=== PATIENT | male | born 1950 | race Caucasian/White ===

== ENCOUNTER 2020-05-27 21:31 | Inpatient (IN) | payer MEDICARE, BC ==
--- NOTE | 2020-05-27 22:18 | RAD ---
PORTABLE CHEST: Date: 05/27/2020 PROVIDED CLINICAL HISTORY: Dyspnea. FINDINGS: Comparison with 04/03/2020. The cardiac silhouette remains enlarged. Median sternotomy changes and left subclavian cardiac pacing device are redemonstrated. No focal consolidation, pleural fluid, or pneumothorax apparent. IMPRESSION: No evidence for an acute cardiopulmonary process. POS: AUDI
[2020-05-27 22:34] LABS: #Eosinphils 0.1 thou/uL (0.0-0.7); #Lymphocytes 1.5 thou/uL (1.20-3.40); #Monocytes 0.6 thou/uL (0.11-0.59); #Neutrophils 5.2 thou/uL (1.40-6.50); %Basophils 0.6 % (0.0-1.0); %Eosinophils 0.8 % (0.0-10.0); %Lymphocytes 20.5 % (21.0-51.0); %Monocytes 7.7 % (0.0-10.0); %Neutrophils 70.5 % (42.0-75.0); Hemoglobin 14.5 g/dL (14.0-18.0); Mean Corpuscular HGB CONC 32.9 g/dL (32.0-36.0); Mean Corpuscular Hemoglobin 32.4 pg (27.0-31.0); Mean Corpuscular Volume 98.4 fL (78.0-98.0); Mean Platelet Volume 9.1 fL (7.4-10.4); Platelet Count 170 thou/uL (130-400); RBC Distribution Width 13.4 % (11.5-14.5); Red Blood Cell (RBC) Count 4.47 mill/uL (4.70-6.10); White Blood Cell (WBC) Count 7.4 thou/uL (4.8-10.8)
[2020-05-27 22:54] LABS: ALT (SGPT) 53 U/L (8-55); AST (SGOT) 31 U/L (5-34); Albumin 3.8 g/dL (3.4-4.8); Alkaline Phosphatase 69 U/L (40-110); Anion Gap 15 mmol/L (10-20); BUN (Urea Nitrogen) 27 mg/dL (8.4-25.7); Bilirubin, Total 0.6 mg/dL (0.2-1.2); Calc. Creatinine Clearance 0 mL/min (70-130); Calcium 9.8 mg/dL (7.8-10.44); Carbon Dioxide 24 mmol/L (23-31); Chloride 105 mmol/L (98-107); Estimated GFR-MDRD 56; Globulin 2.2 g/dL (2.4-3.5); Glucose 128 mg/dL (83-110); Potassium 4.5 mmol/L (3.5-5.1); Sodium 139 mmol/L (136-145)
[2020-05-28] MEDS ORDERED: HYDROcodone/Acetaminophen 5/325 mg Tablet PO PRN (01:05)
[2020-05-28] MEDS ORDERED: Ondansetron PF 4 MG/2 ML Vial IVP PRN (01:05)
[2020-05-28] MEDS ORDERED: diphenhydrAMINE 50 MG/ML VIAL IVP PRN (01:05)
[2020-05-28] MEDS ORDERED: Acetaminophen 650 MG Suppository PR PRN (01:05)
[2020-05-28] MEDS ORDERED: Acetaminophen 325 MG TAB PO PRN (01:05)
--- NOTE | 2020-05-28 01:21 | PDOC.HHP ---
Hospitalist HPI - History of Present Illness dyspnea abdominal pain History of Present Illness: Case of an 70y/o male with a pmhx of cad, chf with an ef of around 20-25% with def hld and htn who comes to hospital due to dyspnea, abdominal pain nausea and vomiting. patient refers he was on his usual states until a few weeks ago when they started him on entresto holding his spiranolactone and a change on his lipid/cholesterol medication. patient states his spiranolactone was stopped due to concerns of hyperkalemia due to starting entresto. patient states that for the last couples of weeks he was been experimenting bloating and abdominal discomfort and that for the last 2-3 days he began with some intractable nausea vomiting and dyspnea. patient deneis any chest pain palpitation or diaphoresis. he states he has no noted any significant change in weight, does refers he is passing a lot of stool recently but that is of normal consistency. denies fever chills cough dysuria. initially abdominal pain was diffused but is now concentrated on LLQ 4/10 of intensity. states last colonoscopy was approximately 5 years ago and was normal Hospitalist ROS - Review of Systems All other systems reviewed; all pertinent +/- noted in HPI/Subj Hospitalist History - Past Surgical History Past Surgical History: reports: CABG Other Surgical History: stent - Family History Family History: reports: cardiac disorder, hypertension - Social History Smoking Status: Never smoker Alcohol: reports: None Drugs: reports: none Living Situation: With Family - Exam General Appearance: NAD, awake alert Eye: PERRL, anicteric sclera ENT: normocephalic atraumatic, no oropharyngeal lesions Neck: supple, symmetric, no JVD Heart: RRR, no murmur, no gallops Respiratory: CTAB, no wheezes, no rales, no ronchi Gastrointestinal: soft, non-distended, normal bowel sounds, tender to palpation Gastrointestinal - other findings: mild tenders llq Extremities: no cyanosis, no clubbing, no edema Skin: normal turgor, no lesions Neurological: cranial nerve grossly intact, normal sensation to touch, no weakness Musculoskeletal: normal tone, normal strength, no muscle wasting Psychiatric: normal affect, normal behavior, A&O x 3 Hospitalist Results - Labs Result Diagrams: 05/27/20 22:23 05/27/20 22:23 Lab results: WBC 7.4 thou/uL (4.8-10.8) 05/27/20 22:23 Hgb 14.5 g/dL (14.0-18.0) 05/27/20 22:23 Hct 44.0 % (42.0-52.0) 05/27/20 22:23 MCV 98.4 fL (78.0-98.0) H 05/27/20 22:23 Plt Count 170 thou/uL (130-400) 05/27/20 22:23 Neutrophils % 70.5 % (42.0-75.0) 05/27/20 22:23 Sodium 139 mmol/L (136-145) 05/27/20 22:23 Potassium 4.5 mmol/L (3.5-5.1) 05/27/20 22:23 Chloride 105 mmol/L (98-107) 05/27/20 22:23 Carbon Dioxide 24 mmol/L (23-31) 05/27/20 22:23 BUN 27 mg/dL (8.4-25.7) H 05/27/20 22:23 Creatinine 1.26 mg/dL (0.7-1.3) 05/27/20 22:23 Glucose 128 mg/dL (83-110) H 05/27/20 22:23 Calcium 9.8 mg/dL (7.8-10.44) 05/27/20 22:23 Total Bilirubin 0.6 mg/dL (0.2-1.2) 05/27/20 22:23 AST 31 U/L (5-34) 05/27/20 22:23 ALT 53 U/L (8-55) 05/27/20 22:23 Alkaline Phosphatase 69 U/L (40-110) 05/27/20 22:23 Troponin I 0.026 ng/mL (< 0.028) 05/27/20 22:23 B-Natriuretic Peptide 3069.0 pg/mL (0-100) H 05/27/20 22:23 Serum Total Protein 6.0 g/dL (5.8-8.1) 05/27/20 22:23 Albumin 3.8 g/dL (3.4-4.8) 05/27/20 22:23 Hospitalist H&P A/P - Problem (1) Acute decompensated heart failure Code(s): I50.9 - HEART FAILURE, UNSPECIFIED Status: Acute (2) CAD (coronary artery disease) Code(s): I25.10 - ATHSCL HEART DISEASE OF [place] CORONARY ARTERY W/O ANG PCTRS Status: Acute (3) Abdominal pain Code(s): R10.9 - UNSPECIFIED ABDOMINAL PAIN Status: Acute (4) Nausea & vomiting Code(s): R11.2 - NAUSEA WITH VOMITING, UNSPECIFIED Status: Acute (5) HTN (hypertension) Code(s): I10 - ESSENTIAL (PRIMARY) HYPERTENSION Status: Acute (6) HLD (hyperlipidemia) Code(s): E78.5 - HYPERLIPIDEMIA, UNSPECIFIED Status: Acute - Plan Plan: 70y/o male with the stated pmhx who presents with abd pain with associated n/v and dyspnea decompensated heart failure - cxr with cardiomegaly - bnp in the 3k - cardiology consulted - troponin negative will trend -02 supplementation - allergic to lasix will try bumex - 2d echo - continue with betablocker and entresto - will restart spiranolactone, monitor K levels -telemetry monitoring nausea and vomiting - prn symptomatic tx abdominal pain - concentrated on LLQ now - will get abd ct - symptoms started wth bloating increased stooling. patient was recently started on livalo and vascepa which both have listed side effects abd discomfort diarrhea and nausea. will hold for now. hld - statin stopped due to muscle aches. recently started on livalo and vascepa. w ill hold due to possible side effects affecting patient
[2020-05-28 02:06] LABS: Troponin I 0.015 ng/mL (< 0.028)
[2020-05-28 02:40] VITALS: BMI 25.7
[2020-05-28 04:28] LABS: SARS-CoV-2 MS2 Positive; SARS-CoV-2 N Gene Negative; SARS-CoV-2 S Gene Negative; SARS-CoV-2 by NAA Not Detected (NotDetected); SARS-CoV-2 orf1ab Negative
[2020-05-28 04:38] LABS: #Basophils 0.1 thou/uL (0.0-0.2); #Lymphocytes 1.7 thou/uL (1.20-3.40); #Monocytes 0.6 thou/uL (0.11-0.59); #Neutrophils 5.5 thou/uL (1.40-6.50); %Basophils 0.7 % (0.0-1.0); %Eosinophils 0.5 % (0.0-10.0); %Lymphocytes 21.3 % (21.0-51.0); %Monocytes 8.1 % (0.0-10.0); %Neutrophils 69.4 % (42.0-75.0); Hemoglobin 14.9 g/dL (14.0-18.0); Mean Corpuscular HGB CONC 33.3 g/dL (32.0-36.0); Mean Corpuscular Hemoglobin 32.8 pg (27.0-31.0); Mean Corpuscular Volume 98.6 fL (78.0-98.0); Mean Platelet Volume 9.6 fL (7.4-10.4); Platelet Count 154 thou/uL (130-400); RBC Distribution Width 13.4 % (11.5-14.5); Red Blood Cell (RBC) Count 4.53 mill/uL (4.70-6.10); White Blood Cell (WBC) Count 7.9 thou/uL (4.8-10.8)
[2020-05-28 04:58] LABS: ALT (SGPT) 51 U/L (8-55); AST (SGOT) 31 U/L (5-34); Albumin 3.7 g/dL (3.4-4.8); Alkaline Phosphatase 68 U/L (40-110); Anion Gap 14 mmol/L (10-20); BUN (Urea Nitrogen) 26 mg/dL (8.4-25.7); Bilirubin, Total 0.8 mg/dL (0.2-1.2); Calc. Creatinine Clearance 65 mL/min (70-130); Calcium 9.8 mg/dL (7.8-10.44); Carbon Dioxide 25 mmol/L (23-31); Chloride 105 mmol/L (98-107); Estimated GFR-MDRD 61; Globulin 2.4 g/dL (2.4-3.5); Glucose 119 mg/dL (83-110); Magnesium 1.9 mg/dL (1.6-2.6); Potassium 4.3 mmol/L (3.5-5.1); Protein, Total 6.1 g/dL (5.8-8.1); Sodium 140 mmol/L (136-145)
[2020-05-28 05:02] LABS: Troponin I 0.018 ng/mL (< 0.028)
[2020-05-28] MEDS: Bumetanide 1 MG/4 ML VIAL IVP SCH ×2 (06:43→14:13)
[2020-05-28] MEDS: Carvedilol 6.25 MG TAB PO SCH ×2 (08:20→20:59)
[2020-05-28] MEDS: Aspirin Chewable 81 MG TAB PO SCH (08:20)
[2020-05-28] MEDS: Clopidogrel Bisulfate 75 MG TAB PO SCH (08:21)
[2020-05-28] MEDS: Spironolactone 25 MG TAB PO SCH (08:21)
[2020-05-28] MEDS: Enoxaparin Sodium 40 MG/0.4 ML SYRINGE SC SCH (08:21)
[2020-05-28] MEDS: Sacubitril 49 MG/Valsartan 51 MG TABLET PO SCH ×2 (08:22→21:00)
--- NOTE | 2020-05-28 09:51 | CT ---
CT ABDOMEN AND PELVIS WITH ORAL AND IV CONTRAST: HISTORY: Nausea, vomiting, and lower left quadrant abdominal pain. COMPARISON: None. FINDINGS: A small right pleural effusion is present. A small focal patchy consolidation is seen in the left leah ng base. No calcified gallstones are seen. There is a tiny amount of fluid adjacent to the liver. The liver, spleen, pancreas, adrenal glands, and kidneys appear normal. No intraperitoneal free air or lymphadenopathy is seen in the abdomen or pelvis. A small amount of free fluid is also noted in t he pelvis. The small bowel loops are not abnormally dilated. There is a small fat-containing left inguinal jorge ia. There are vascular calcifications without evidence of aneurysmal dilatation of the abdominal aorta. A small hiatal hernia is present. There are degenerative changes in the spine. There is mild compre ssion on the superior end plate of L3 vertebral body. A small amount of free air in the subcutaneous fat of the right anterior abdominal wall is likely due to recent injection. IMPRESSION: 1. Small right pleural effusion and small patchy area of consolidation in the left lung base. 2. Small hiatal hernia. 3. A small amount of free fluid in the abdomen and pelvis. 4. No evidence of high-grade bowel obstruction. POS: MZA
[2020-05-28] MEDS ORDERED: Iopamidol-370 76% 500 ML 1 ML ONE (11:38)
[2020-05-28] MEDS: Ondansetron ODT 4 MG TAB PO PRN ×2 (13:14→21:00)
[2020-05-28] MEDS ORDERED: lamoTRIgine 100 MG TAB PO SCH (18:30)
--- NOTE | 2020-05-28 18:46 | CON ---
DATE OF CONSULTATION: HISTORY: Km Gonzales is a 70-year-old white male, with history of ischemic cardiomyopathy. He recently moved to the area and first saw Dr. Ayala in April 2020. He underwent CABG in 2005. In 2016, he had occlusion of his DSOUZA and he underwent stent placement in the left main. He was supported with Impella. His ejection fraction has been 20% to 25% and he has a single-chamber Biotronik defibrillator. He did develop rash with Lasix and was then tried on spironolactone. Also, Dr. Ayala placed him on Entresto, which he seems to have tolerated fairly well. He now is admitted with increased dyspnea, abdominal pain, nausea, and vomiting. He denies any peripheral edema. He also denies any chest pain. He has been treated with intravenous Bumex, which he apparently has been tolerating fairly well. PAST MEDICAL HISTORY: Ischemic cardiomyopathy, coronary artery disease, hyperlipidemia, depression, asthma, and history of ventricular fibrillation. OPERATIONS: CABG, stent placement presumably in the left main and single-chamber ICD placement. MEDICATIONS: 1. Aspirin 81 daily. 2. Wellbutrin 300 mg q.a.m. 3. Carvedilol 12.5 mg b.i.d. 4. Plavix 75 at bedtime. 5. Vascepa two capsules b.i.d. 6. Lamotrigine 100 mg daily. 7. Livalo 2 mg daily. 8. Entresto 49/51 b.i.d. 9. Spironolactone 25 daily. 10. CoQ10 is 100 daily. ALLERGIES: RASH WITH FUROSEMIDE. WITH ZACHARIAH INHIBITORS, HE DEVELOPED ANGIOEDEMA. WITH MORPHINE, HE DEVELOPS MENTAL CONFUSION AND MENTAL STATUS CHANGES. SOCIAL HISTORY: He does not smoke and never has. He does not drink. FAMILY HISTORY: Mother and multiple siblings have had coronary artery disease. REVIEW OF SYSTEMS: A 12-point review of systems unremarkable. PHYSICAL EXAMINATION: VITAL SIGNS: 123/72, pulse of 70. HEENT: PERRL. NECK: Supple. CHEST: Clear. CARDIAC: S1 and S2 normal, without any S3 or S4. There is a 2/6 holosystolic murmur along the left sternal border and at the apex. ABDOMEN: Normal bowel sounds without tenderness or organomegaly. EXTREMITIES: Revealed no clubbing, cyanosis, or edema. NEUROLOGIC: Grossly intact. SKIN: Warm and dry. LABORATORY DATA: EKG reveals normal sinus rhythm with left axis deviation, nonspecific intraventricular conduction delay, probable anterior infarction. His QRS is 132 milliseconds. He has not had any significant arrhythmias since admission. Sodium 140, potassium 4.3, chloride 105, carbon dioxide 25, BUN 26, and creatinine 1.17. BNP 3069.0. Troponin I is normal. TSH is normal. Hemoglobin 14.9, hematocrit 44.6, white count 7900, and platelets 154,000. Echocardiogram revealed severe left ventricular enlargement with ejection fraction of 10% to 15%, which is worse than before. Defibrillator wire in the right ventricle, with enlarged right ventricle, mild left atrial enlargement, severe mitral regurgitation, severe tricuspid regurgitation and aortic valvular sclerosis. IMPRESSION: 1. Ischemic cardiomyopathy with ejection fraction falling from 20% to 10% to 15%. at this time. 2. Status post coronary artery bypass graft x3. 3. History of closure of the DSOUZA in 2017 with Impella support. Presumably a stent was placed in the left main. 4. Hyperlipidemia. 5. Asthma. 6. Depression. PLAN: Patient will continue to be diuresed with Bumex which he appears to be tolerating. He will be continued on his carvedilol and Entresto. On his EKG, he does have QRS of 132 milliseconds with nonspecific intraventricular conduction delay. I am not certain if this is a new finding and we will attempt to find an EKG in the office for comparison. If that is the case, he then may benefit from consideration with an upgrade to a biventricular ICD. Job ID: [id number]
[2020-05-29] MEDS: Bumetanide 1 MG/4 ML VIAL IVP SCH ×2 (05:26→14:25)
[2020-05-29] MEDS: lamoTRIgine 100 MG TAB PO SCH (09:55)
[2020-05-29] MEDS: Spironolactone 25 MG TAB PO SCH (09:55)
[2020-05-29] MEDS: Carvedilol 6.25 MG TAB PO SCH ×2 (09:55→20:15)
[2020-05-29] MEDS: Bupropion 150 MG XL TAB PO SCH (09:56)
[2020-05-29] MEDS: Clopidogrel Bisulfate 75 MG TAB PO SCH (09:56)
[2020-05-29] MEDS: Aspirin Chewable 81 MG TAB PO SCH (09:56)
[2020-05-29] MEDS: Sacubitril 49 MG/Valsartan 51 MG TABLET PO SCH ×2 (09:56→20:13)
[2020-05-29] MEDS: Enoxaparin Sodium 40 MG/0.4 ML SYRINGE SC SCH (09:59)
[2020-05-29] MEDS ORDERED: Sodium Chloride 0.9% 10 ML ONE (14:13)
[2020-05-29] MEDS: Ondansetron ODT 4 MG TAB PO PRN (15:36)
--- NOTE | 2020-05-29 16:50 | PDOC.CPN ---
- Subjective Date: 05/29/20 Time: 16:48 Interval history: No over night events, patient doing well, states that he is feeling better and not having any SOB or DEWITT today. States that he walked twice as far today with therapy as he did yesterday with fewer breaks. Still c/o bloating sensation in a bdomen after he eats meals, denies nausea and vomiting today. - Review of Systems General: denies: fever/chills, weight/appetite/sleep changes, night sweats, fa tigue Respiratory: denies: cough, congestion, shortness of breath, exercise intolerance Cardiovascular: denies: chest pain, palpitation, edema, paroxysmal nocturnal dyspnea, orthopnea Gastrointestinal: denies: nausea (c/o abdominal bloating sensation after eating), vomiting, diarrhea, constipation, abd pain, GI bleeding Musculoskeletal: denies: pain, tenderness, stiffness, swelling, arthritis/arth ralgias Neurological: denies: numbness, syncope, seizure, weakness - Objective Allergies/Adverse Reactions: Allergies Allergy/AdvReac Type Severity Reaction Status Date / Time ZACHARIAH Inhibitors Allergy Verified 05/28/20 04:50 furosemide [From Lasix] Allergy Verified 05/28/20 04:50 latex Allergy Verified 05/28/20 04:50 morphine Allergy Verified 05/28/20 04:50 Visit Medications: Current Medications Acetaminophen (Acetaminophen 325 Mg Tab) 650 mg PO Q4H PRN PRN Reason: Headache/Fever/Mild Pain (1-3) Acetaminophen (Acetaminophen 650 Mg Suppository) 650 mg TX Q4H PRN PRN Reason: Headache/Fever/Mild Pain (1-3) Hydrocodone Bitart/Acetaminophen (Hydrocodone/Acetaminophen 5/325 Mg Tablet) 1 tab PO Q4H PRN PRN Reason: Moderate Pain (4-6) Aspirin (Aspirin Chewable 81 Mg Tab) 81 mg PO DAILY [facility] Last Admin: 05/29/20 09:56 Dose: 81 mg Documented by: Bumetanide (Bumetanide 1 Mg/4 Ml Vial) 1 mg IVP 0600,1400 [facility] Last Admin: 05/29/20 14:25 Dose: 1 mg Documented by: Bupropion HCl (Bupropion 150 Mg Xl Tab) 300 mg PO QAM [facility] Last Admin: 05/29/20 09:56 Dose: 300 mg Documented by: Carvedilol (Carvedilol 6.25 Mg Tab) 12.5 mg PO BID [facility] Last Admin: 05/29/20 09:55 Dose: 12.5 mg Documented by: Clopidogrel Bisulfate (Clopidogrel Bisulfate 75 Mg Tab) 75 mg PO DAILY [facility] Last Admin: 05/29/20 09:56 Dose: 75 mg Documented by: Diphenhydramine HCl (Diphenhydramine 50 Mg/Ml Vial) 25 mg IVP [place] PRN PRN Reason: Allergies Enoxaparin Sodium (Enoxaparin Sodium 40 Mg/0.4 Ml Syringe) 40 mg SC 09 [facility] Last Admin: 05/29/20 09:59 Dose: 40 mg Documented by: Lamotrigine (Lamotrigine 100 Mg Tab) 100 mg PO DAILY [facility] Last Admin: 05/29/20 09:55 Dose: 100 mg Documented by: Ondansetron HCl (Ondansetron Odt 4 Mg Tab) 4 mg PO Q6H PRN PRN Reason: Nausea/Vomiting Last Admin: 05/29/20 15:36 Dose: 4 mg Documented by: Ondansetron HCl (Ondansetron Pf 4 Mg/2 Ml Vial) 4 mg IVP Q6H PRN PRN Reason: Nausea/Vomiting Sacubitril/Valsartan (Sacubitril 49 Mg/Valsartan 51 Mg Tablet) 1 tab PO BID [facility] Last Admin: 05/29/20 09:56 Dose: 1 tab Documented by: Spironolactone (Spironolactone 25 Mg Tab) 12.5 mg PO DAILY [facility] Last Admin: 05/29/20 09:55 Dose: 12.5 mg Documented by: Vital Signs & Weight: Vital Signs Temp Pulse Pulse Pulse Resp BP BP 05/29/20 11:39 97.9 F 70 16 05/29/20 10:47 86 77 122/76 05/29/20 09:55 122/74 05/29/20 08:00 97.5 F L 75 16 BP BP Pulse Ox Pulse Ox Pulse Ox 05/29/20 11:39 117/77 97 05/29/20 10:47 117/86 99 98 05/29/20 09:55 05/29/20 08:00 122/74 95 Weight 173 lb 14.4 oz - Quality Measures CV meds: Beta Narendra: Yes, ZACHARIAH/ARB: Yes, Statin: Yes, ASA: Yes, Plavix/Effient/Brilinta: Yes - Physical Exam General: alert & oriented x3, appears well, no apparent distress HEENT: mucus membranes moist Neck: supple neck, no JVD/HJR Cardiac: regular rate and rhythm, systolic murmur (2/6 holosystolic murmur along the left sternal border and at the apex) Lungs: clear to auscultation, normal breath sounds, no wheeze, rales, rhonchi Neuro: grossly intact, motor function intact, sensory function intact Abdomen: unremarkable, active bowel sounds, soft, non-tender, no masses Extremities: no cyanosis, no clubbing, no edema, 2+ Posterior Tibial, 2+ Dorsalis Pedus Skin: clear Musculoskeletal: normal range of motion, no pain - Labs Result Diagrams: 05/28/20 04:05 05/28/20 04:05 Troponin/CKMB Troponin I 0.018 ng/mL (< 0.028) 05/28/20 04:05 - EKG Interpretation EKG Method: Telemetry EKG: sinus rhythm - Assessment/Plan Assessment/Plan: 1. Ischemic cardiomyopathy with EF of 10-15%, continue with current medications at this time, on Carvedilol, Entresto and Spironolactone, EP consult Sunday. 2. S/P CABG x 3 3. Hyperlipidemia: on Vascepa and Livalo, will obtain most recent lipid panel from office records 4. Asthma: well-controlled at this time Pt. seen and eval. by me. I agree with the a/P by the LEAD GENERATION REPRESENTATIVE. EP to see on Sunday to consider upgrade to Bi-V device. The pt. would require increased dose of betablockers in order to allow V-pacing since the HR has been in the 70-90's., he paces raely at this time. abdoul
--- NOTE | 2020-05-29 18:07 | PDOC.HOSPP ---
- Subjective Encounter Date: 05/29/20 Encounter Time: 09:30 Subjective: Patient seen for follow-up regarding congestive heart failure exacerbation. Reports feeling better today. It appears that he has been able to lie flat. He reports less shortness of breath with exertion. - Objective Vital Signs & Weight: Vital Signs (12 hours) Temp Pulse Pulse Pulse Resp BP BP 05/29/20 16:00 98.2 F 73 16 05/29/20 11:39 97.9 F 70 16 05/29/20 10:47 86 77 122/76 05/29/20 09:55 122/74 05/29/20 08:00 97.5 F L 75 16 BP BP Pulse Ox Pulse Ox Pulse Ox 05/29/20 16:00 108/76 05/29/20 11:39 117/77 97 05/29/20 10:47 117/86 99 98 05/29/20 09:55 05/29/20 08:00 122/74 95 Weight Weight 173 lb 14.4 oz I&O: 05/28/20 05/29/20 05/30/20 06:59 06:59 06:59 Intake Total 240 1240 Output Total 50 2120 Balance 190 -880 Result Diagrams: 05/28/20 04:05 05/28/20 04:05 Additional Labs: Labs and MAR reviewed by me EKG Reviewed by me: Yes (Telemetry shows normal sinus rhythm) Hospitalist ROS - Review of Systems Respiratory: reports: SOB with excertion. denies: cough, dry, shortness of breath, hemoptysis, pleuritic pain, sputum, wheezing Cardiovascular: denies: chest pain, palpitations, orthopnea, paroxysmal noc. dyspnea, edema, light headedness Gastrointestinal: denies: nausea, vomiting, abdominal pain, diarrhea, constipation, melena, hematochezia - Medication Medications: Active Medications Generic Name Dose Route Start Last Admin Trade Name Freq PRN Reason Stop Dose Admin Aspirin 81 mg 05/28/20 09:00 05/29/20 09:56 Aspirin Chewable 81 Mg Tab PO 81 mg DAILY EFRAÍN Administration Bumetanide 1 mg 05/28/20 06:00 05/29/20 14:25 Bumetanide 1 Mg/4 Ml Vial IVP 1 mg 0600,1400 EFRAÍN Administration Bupropion HCl 300 mg 05/29/20 09:00 05/29/20 09:56 Bupropion 150 Mg Xl Tab PO 300 mg QAM EFRAÍN Administration Carvedilol 12.5 mg 05/28/20 09:00 05/29/20 09:55 Carvedilol 6.25 Mg Tab PO 12.5 mg BID EFRAÍN Administration Clopidogrel Bisulfate 75 mg 05/28/20 09:00 05/29/20 09:56 Clopidogrel Bisulfate 75 Mg Tab PO 75 mg DAILY EFRAÍN Administration Enoxaparin Sodium 40 mg 05/28/20 09:00 05/29/20 09:59 Enoxaparin Sodium 40 Mg/0.4 Ml Syringe SC 40 mg 09 EFRAÍN Administration Lamotrigine 100 mg 05/29/20 09:00 05/29/20 09:55 Lamotrigine 100 Mg Tab PO 100 mg DAILY EFRAÍN Administration Ondansetron HCl 4 mg 05/28/20 01:05 05/29/20 15:36 Ondansetron Odt 4 Mg Tab PO 4 mg Q6H PRN Administration Nausea/Vomiting Sacubitril/Valsartan 1 tab 05/28/20 09:00 05/29/20 09:56 Sacubitril 49 Mg/Valsartan 51 Mg Tablet PO 1 tab BID [facility] Administration Spironolactone 12.5 mg 05/28/20 09:00 05/29/20 09:55 Spironolactone 25 Mg Tab PO 12.5 mg DAILY EFRAÍN Administration - Exam General Appearance: awake alert Eye: anicteric sclera ENT: moist mucosa Neck: supple Heart: RRR Respiratory: CTAB Gastrointestinal: soft, non-tender Skin: no rashes Psychiatric: normal affect, normal behavior Hosp A/P - Plan -Assessment (1) Acute decompensated heart failure Code(s): I50.9 - HEART FAILURE, UNSPECIFIED Status: Acute (2) CAD (coronary artery disease) Code(s): I25.10 - ATHSCL HEART DISEASE OF [place] CORONARY ARTERY W/O ANG PCTRS Status: Chronic (3) HTN (hypertension) Code(s): I10 - ESSENTIAL (PRIMARY) HYPERTENSION Status: Chronic (4) HLD (hyperlipidemia) Code(s): E78.5 - HYPERLIPIDEMIA, UNSPECIFIED Status: Chronic (5) Abdominal pain Code(s): R10.9 - UNSPECIFIED ABDOMINAL PAIN Status: Resolved (6) Nausea & vomiting Code(s): R11.2 - NAUSEA WITH VOMITING, UNSPECIFIED Status: Resolved - Plan Plan: 70y/o male with the stated pmhx who presents with abd pain with associated n/v and dyspnea Continue IV bumetanide. Patient is clinically improving. Continue to ambulate patient. Appreciate cardiology service input. Continue Entresto. Continue Wellbutrin. Await EP service input. CAD stable. Continue Livalo and Vascepa. Hypertension is controlled and stable.
--- NOTE | 2020-05-29 20:03 | PDOC.EVN ---
Event Note - Event Note Event Note: Nursing called, patient has slightly pruritic rash s/p bumex, hx allergy to lasix. VSS, no resp distress. Will give antihistamines. D/C bumex.
[2020-05-29] MEDS ORDERED: Famotidine 20 MG TAB PO SCH (20:15)
[2020-05-29] MEDS ORDERED: diphenhydrAMINE 25 MG CAP PO SCH (20:15)
[2020-05-29] MEDS: Atorvastatin Calcium 10 MG TAB PO SCH (20:15)
[2020-05-30] MEDS ORDERED: diphenhydrAMINE 50 MG/ML VIAL IVP SCH ×2 (01:45→08:45)
[2020-05-30 05:00] LABS: #Eosinphils 0.4 thou/uL (0.0-0.7); #Lymphocytes 1.6 thou/uL (1.20-3.40); #Monocytes 0.6 thou/uL (0.11-0.59); #Neutrophils 4.4 thou/uL (1.40-6.50); %Basophils 0.7 % (0.0-1.0); %Eosinophils 5.1 % (0.0-10.0); %Lymphocytes 22.9 % (21.0-51.0); %Monocytes 8.9 % (0.0-10.0); %Neutrophils 62.4 % (42.0-75.0); Hemoglobin 15.6 g/dL (14.0-18.0); Mean Corpuscular HGB CONC 32.4 g/dL (32.0-36.0); Mean Corpuscular Hemoglobin 32.1 pg (27.0-31.0); Mean Corpuscular Volume 99.1 fL (78.0-98.0); Mean Platelet Volume 9.8 fL (7.4-10.4); Platelet Count 163 thou/uL (130-400); RBC Distribution Width 13.9 % (11.5-14.5); Red Blood Cell (RBC) Count 4.85 mill/uL (4.70-6.10); White Blood Cell (WBC) Count 7.1 thou/uL (4.8-10.8)
[2020-05-30 05:22] LABS: Anion Gap 15 mmol/L (10-20); BUN (Urea Nitrogen) 30 mg/dL (8.4-25.7); Calc. Creatinine Clearance 55 mL/min (70-130); Calcium 9.3 mg/dL (7.8-10.44); Carbon Dioxide 28 mmol/L (23-31); Chloride 97 mmol/L (98-107); Estimated GFR-MDRD 52; Glucose 112 mg/dL (83-110); Potassium 3.9 mmol/L (3.5-5.1); Sodium 136 mmol/L (136-145)
[2020-05-30] MEDS: Clopidogrel Bisulfate 75 MG TAB PO SCH (08:28)
[2020-05-30] MEDS: Bupropion 150 MG XL TAB PO SCH (08:28)
[2020-05-30] MEDS: Sacubitril 49 MG/Valsartan 51 MG TABLET PO SCH ×2 (08:28→20:55)
[2020-05-30] MEDS: Ubidecarenone 50 MG CAP PO SCH (08:28)
[2020-05-30] MEDS: Aspirin Chewable 81 MG TAB PO SCH (08:29)
[2020-05-30] MEDS: Cholecalciferol 1,000 UNITS (25 MCG) TAB PO SCH (08:29)
[2020-05-30] MEDS: Carvedilol 6.25 MG TAB PO SCH ×2 (08:29→20:55)
[2020-05-30] MEDS: lamoTRIgine 100 MG TAB PO SCH (08:30)
[2020-05-30] MEDS: Spironolactone 25 MG TAB PO SCH (08:30)
[2020-05-30] MEDS: Enoxaparin Sodium 40 MG/0.4 ML SYRINGE SC SCH (08:32)
[2020-05-30] MEDS ORDERED: Non-Formulary Item 1 EACH (Pitavastatin Calcium 2 MG Tab) PO SCH (09:00)
[2020-05-30] MEDS: Icosapent Ethyl 1 GM CAPSULE PO SCH ×2 (09:09→16:31)
--- NOTE | 2020-05-30 14:23 | PDOC.CPN ---
- Subjective Date: 05/30/20 Time: 13:40 Interval history: Patient doing well today. He did have 5 beats of NSVT early this AM. Patient asymptomatic. patient had development of rash last night, possibly from IV Bumex r/t Furosemide allergy, patient had received 4 doses of IV Bumex before developm ent of rash, Bumex has been dc'd. Rash still present, patient c/o itching to rash, has received Benadryl for this which has been helpful. Denies any chest pain of shortness of breath, states he nausea and stomach upset are getting better, but still c/o abdominal bloating today, he is sitting up in his chair. - Review of Systems General: denies: fever/chills, weight/appetite/sleep changes, night sweats, fatigue Respiratory: denies: cough, congestion, shortness of breath, exercise intolerance Cardiovascular: denies: chest pain, palpitation, edema, paroxysmal nocturnal dyspnea, orthopnea Gastrointestinal: reports: abd pain (abdominal bloating and slight discomfort upon palpation). denies: nausea, vomiting, diarrhea, constipation, GI bleeding Musculoskeletal: denies: pain, tenderness, stiffness, swelling, arthritis/arthralgias Neurological: denies: numbness, syncope, seizure, weakness - Objective Allergies/Adverse Reactions: Allergies Allergy/AdvReac Type Severity Reaction Status Date / Time ZACHARIAH Inhibitors Allergy Verified 05/28/20 04:50 furosemide [From Lasix] Allergy Verified 05/28/20 04:50 latex Allergy Verified 05/28/20 04:50 morphine Allergy Verified 05/28/20 04:50 Visit Medications: Current Medications Acetaminophen (Acetaminophen 325 Mg Tab) 650 mg PO Q4H PRN PRN Reason: Headache/Fever/Mild Pain (1-3) Acetaminophen (Acetaminophen 650 Mg Suppository) 650 mg VA Q4H PRN PRN Reason: Headache/Fever/Mild Pain (1-3) Hydrocodone Bitart/Acetaminophen (Hydrocodone/Acetaminophen 5/325 Mg Tablet) 1 tab PO Q4H PRN PRN Reason: Moderate Pain (4-6) Aspirin (Aspirin Chewable 81 Mg Tab) 81 mg PO DAILY [facility] Last Admin: 05/30/20 08:29 Dose: 81 mg Documented by: Atorvastatin Calcium (Atorvastatin Calcium 10 Mg Tab) 10 mg PO HS [facility] Last Admin: 05/29/20 20:15 Dose: 10 mg Documented by: Bupropion HCl (Bupropion 150 Mg Xl Tab) 300 mg PO QAM [facility] Last Admin: 05/30/20 08:28 Dose: 300 mg Documented by: Carvedilol (Carvedilol 6.25 Mg Tab) 12.5 mg PO BID [facility] Last Admin: 05/30/20 08:29 Dose: 12.5 mg Documented by: Cholecalciferol (Cholecalciferol 1,000 Units (25 Mcg) Tab) 2,000 units PO DAILY [facility] Last Admin: 05/30/20 08:29 Dose: 2,000 units Documented by: Clopidogrel Bisulfate (Clopidogrel Bisulfate 75 Mg Tab) 75 mg PO DAILY [facility] Last Admin: 05/30/20 08:28 Dose: 75 mg Documented by: Coenzyme Q10 (Ubidecarenone 50 Mg Cap) 100 mg PO DAILY [facility] Last Admin: 05/30/20 08:28 Dose: 100 mg Documented by: Diphenhydramine HCl (Diphenhydramine 50 Mg/Ml Vial) 25 mg IVP [place]CALL PRN PRN Reason: Allergies Last Admin: 05/30/20 01:49 Dose: 25 mg Documented by: Enoxaparin Sodium (Enoxaparin Sodium 40 Mg/0.4 Ml Syringe) 40 mg SC 0900 [facility] Last Admin: 05/30/20 08:32 Dose: 40 mg Documented by: Lamotrigine (Lamotrigine 100 Mg Tab) 100 mg PO DAILY [facility] Last Admin: 05/30/20 08:30 Dose: 100 mg Documented by: Miscellaneous Medication (Icosapent Ethyl 1 Gm Capsule) 2 gm PO BID-AC [facility] Last Admin: 05/30/20 09:09 Dose: 2 gm Documented by: Ondansetron HCl (Ondansetron Odt 4 Mg Tab) 4 mg PO Q6H PRN PRN Reason: Nausea/Vomiting Last Admin: 05/29/20 15:36 Dose: 4 mg Documented by: Ondansetron HCl (Ondansetron Pf 4 Mg/2 Ml Vial) 4 mg IVP Q6H PRN PRN Reason: Nausea/Vomiting Sacubitril/Valsartan (Sacubitril 49 Mg/Valsartan 51 Mg Tablet) 1 tab PO BID [facility] Last Admin: 05/30/20 08:28 Dose: 1 tab Documented by: Spironolactone (Spironolactone 25 Mg Tab) 12.5 mg PO DAILY [facility] Last Admin: 05/30/20 08:30 Dose: 12.5 mg Documented by: Vital Signs & Weight: Vital Signs Temp Pulse Pulse Pulse Resp BP BP 05/30/20 11:39 97.7 F 66 15 05/30/20 09:40 75 79 120/75 05/30/20 08:29 123/78 05/30/20 07:33 97.1 F L 70 16 05/30/20 03:23 97.6 F 80 20 BP BP Pulse Ox Pulse Ox Pulse Ox 05/30/20 11:39 115/69 98 05/30/20 09:40 126/83 100 100 05/30/20 08:29 05/30/20 07:33 123/78 99 05/30/20 03:23 117/79 98 Weight 172 lb 12.8 oz - Quality Measures Condition: Heart Failure CV meds: Beta Narendra: Yes, ZACHARIAH/ARB: Yes, Statin: Yes, ASA: Yes, Plavix/Effient/Brilinta: Yes - Physical Exam General: alert & oriented x3, appears well, no apparent distress. negative: cachectic, other HEENT: mucus membranes moist, normocephaly Neck: supple neck, no JVD/HJR, no masses, no bruit Cardiac: regular rate and rhythm, no murmur Lungs: clear to auscultation, normal breath sounds, no wheeze, rales, rhonchi Neuro: grossly intact, motor function intact, sensory function intact Abdomen: active bowel sounds, soft, no masses (slightly distended abdomen, fluid filled, tender to deep palpation), tender, distended Extremities: no cyanosis, no clubbing, no edema Skin: rash (rash to chest and abdomen from possible medication reaction last night) Musculoskeletal: normal range of motion, no pain, no fluid collection - Labs Result Diagrams: 05/30/20 03:45 05/30/20 03:45 Troponin/CKMB Troponin I 0.018 ng/mL (< 0.028) 05/28/20 04:05 - EKG Interpretation EKG Method: Telemetry EKG: sinus rhythm - Assessment/Plan Assessment/Plan: 1. Ischemic cardiomyopathy with EF of 10-15%, continue with current medications at this time, on Carvedilol, Entresto and Spironolactone. He has fluid accumulation to abdomen, we will restrict fluids to 1200 mL/ day. Will consider changing diuretic, but creatinine has been elevated and he has had reactions with others in the past. EP consult Sunday to consider upgrade to bi-V device. 2. S/P CABG x 3 3. Hyperlipidemia: continue Vascepa and Livalo 4. Asthma: well-controlled at this time, denies CP, SOB, DEWITT, trouble breathing 5. Rash: from possible Bumex reaction, has been discontinued, patient received IV Benadryl which has been helpful per patient report. Pt. seen and eval. by me. I agree with the A/P above by the [employer]. We have discussed the pt. and the plan and I have personally seen and discussed with the pt. and his . abdoul
--- NOTE | 2020-05-30 16:26 | PDOC.HOSPP ---
- Subjective Encounter Date: 05/30/20 Encounter Time: 09:00 Subjective: Patient seen for follow-up regarding CHF exacerbation. He reports he developed rash after IV bumetanide last night. It improved with IV Benadryl. He denies any shortness of breath. - Objective Vital Signs & Weight: Vital Signs (12 hours) Temp Pulse Pulse Pulse Resp BP BP 05/30/20 11:39 97.7 F 66 15 05/30/20 09:40 75 79 120/75 05/30/20 08:29 123/78 05/30/20 07:33 97.1 F L 70 16 BP BP Pulse Ox Pulse Ox Pulse Ox 05/30/20 11:39 115/69 98 05/30/20 09:40 126/83 100 100 05/30/20 08:29 05/30/20 07:33 123/78 99 Weight Weight 172 lb 12.8 oz I&O: 05/29/20 05/30/20 05/31/20 06:59 06:59 06:59 Intake Total 1240 1574 480 Output Total 2120 1300 Balance -880 274 480 Result Diagrams: 05/30/20 03:45 05/30/20 03:45 Additional Labs: I reviewed patient's labs and MAR EKG Reviewed by me: Yes (Telemetry: 5 beat NSVT) Hospitalist ROS - Review of Systems Cardiovascular: denies: chest pain, palpitations, orthopnea, paroxysmal noc. dyspnea, edema, light headedness Gastrointestinal: denies: nausea, vomiting, abdominal pain, diarrhea, constipation, melena, hematochezia Skin: reports: rash - Medication Medications: Active Medications Generic Name Dose Route Start Last Admin Trade Name Luis Danielq PRN Reason Stop Dose Admin Aspirin 81 mg 05/28/20 09:00 05/30/20 08:29 Aspirin Chewable 81 Mg Tab PO 81 mg DAILY [facility] Administration Atorvastatin Calcium 10 mg 05/29/20 21:00 05/29/20 20:15 Atorvastatin Calcium 10 Mg Tab PO 10 mg HS [facility] Administration Bupropion HCl 300 mg 05/29/20 09:00 05/30/20 08:28 Bupropion 150 Mg Xl Tab PO 300 mg QAM [facility] Administration Carvedilol 12.5 mg 05/28/20 09:00 05/30/20 08:29 Carvedilol 6.25 Mg Tab PO 12.5 mg BID [facility] Administration Cholecalciferol 2,000 units 05/30/20 09:00 05/30/20 08:29 Cholecalciferol 1,000 Units (25 Mcg) Tab PO 2,000 units DAILY [facility] Administration Clopidogrel Bisulfate 75 mg 05/28/20 09:00 05/30/20 08:28 Clopidogrel Bisulfate 75 Mg Tab PO 75 mg DAILY [facility] Administration Coenzyme Q10 100 mg 05/30/20 09:00 05/30/20 08:28 Ubidecarenone 50 Mg Cap PO 100 mg DAILY [facility] Administration Diphenhydramine HCl 25 mg 05/28/20 01:05 05/30/20 01:49 Diphenhydramine 50 Mg/Ml Vial IVP 25 mg WILLCALL PRN Administration Allergies Enoxaparin Sodium 40 mg 05/28/20 09:00 05/30/20 08:32 Enoxaparin Sodium 40 Mg/0.4 Ml Syringe SC 40 mg 0900 [facility] Administration Lamotrigine 100 mg 05/29/20 09:00 05/30/20 08:30 Lamotrigine 100 Mg Tab PO 100 mg DAILY [facility] Administration Miscellaneous Medication 2 gm 05/30/20 07:30 05/30/20 09:09 Icosapent Ethyl 1 Gm Capsule PO 2 gm BID-AC [facility] Administration Ondansetron HCl 4 mg 05/28/20 01:05 05/29/20 15:36 Ondansetron Odt 4 Mg Tab PO 4 mg Q6H PRN Administration Nausea/Vomiting Sacubitril/Valsartan 1 tab 05/28/20 09:00 05/30/20 08:28 Sacubitril 49 Mg/Valsartan 51 Mg Tablet PO 1 tab BID [facility] Administration Spironolactone 12.5 mg 05/28/20 09:00 05/30/20 08:30 Spironolactone 25 Mg Tab PO 12.5 mg DAILY [facility] Administration - Exam General Appearance: awake alert Eye: anicteric sclera ENT: normocephalic atraumatic Neck: supple Heart: RRR Respiratory: CTAB Gastrointestinal: soft, non-tender Extremities: no edema Skin - other findings: Faint erythematous rash over the anterior chest wall Musculoskeletal: no muscle wasting Psychiatric: normal affect Hosp A/P - Plan -Assessment (1) Acute decompensated heart failure Code(s): I50.9 - HEART FAILURE, UNSPECIFIED Status: Acute (2) CAD (coronary artery disease) Code(s): I25.10 - ATHSCL HEART DISEASE OF [place] CORONARY ARTERY W/O ANG PCTRS Status: Chronic (3) HTN (hypertension) Code(s): I10 - ESSENTIAL (PRIMARY) HYPERTENSION Status: Chronic (4) HLD (hyperlipidemia) Code(s): E78.5 - HYPERLIPIDEMIA, UNSPECIFIED Status: Chronic (5) Abdominal pain Code(s): R10.9 - UNSPECIFIED ABDOMINAL PAIN Status: Resolved (6) Nausea & vomiting Code(s): R11.2 - NAUSEA WITH VOMITING, UNSPECIFIED Status: Resolved - Plan Plan: Possible allergic reaction to bumetanide, bumetanide is on hold. Patient clinically improving. Continue to ambulate patient. Continue Entresto. Continue Wellbutrin. Continue Livalo and Vascepa. Hypertension is controlled and stable. Awaiting EP service input.
[2020-05-30] MEDS: Ondansetron ODT 4 MG TAB PO PRN (16:53)
[2020-05-30] MEDS: Atorvastatin Calcium 10 MG TAB PO SCH (20:55)
[2020-05-31 04:17] LABS: #Eosinphils 0.4 thou/uL (0.0-0.7); #Lymphocytes 1.5 thou/uL (1.20-3.40); #Monocytes 0.6 thou/uL (0.11-0.59); %Basophils 0.5 % (0.0-1.0); %Eosinophils 6.7 % (0.0-10.0); %Lymphocytes 23.4 % (21.0-51.0); %Monocytes 9.3 % (0.0-10.0); %Neutrophils 60.1 % (42.0-75.0); Hemoglobin 14.3 g/dL (14.0-18.0); Mean Corpuscular HGB CONC 33.2 g/dL (32.0-36.0); Mean Corpuscular Hemoglobin 32.7 pg (27.0-31.0); Mean Corpuscular Volume 98.4 fL (78.0-98.0); Mean Platelet Volume 9.7 fL (7.4-10.4); Platelet Count 145 thou/uL (130-400); RBC Distribution Width 13.5 % (11.5-14.5); Red Blood Cell (RBC) Count 4.38 mill/uL (4.70-6.10); White Blood Cell (WBC) Count 6.6 thou/uL (4.8-10.8)
[2020-05-31 04:53] LABS: Anion Gap 12 mmol/L (10-20); BUN (Urea Nitrogen) 24 mg/dL (8.4-25.7); Calc. Creatinine Clearance 63 mL/min (70-130); Calcium 8.8 mg/dL (7.8-10.44); Carbon Dioxide 29 mmol/L (23-31); Chloride 100 mmol/L (98-107); Estimated GFR-MDRD 60; Glucose 115 mg/dL (83-110); Sodium 137 mmol/L (136-145)
[2020-05-31] MEDS ORDERED: Iopamidol 370 76% 50 ML VIAL FS ONE (10:04)
[2020-05-31] MEDS: Sacubitril 49 MG/Valsartan 51 MG TABLET PO SCH ×2 (10:20→22:34)
[2020-05-31] MEDS: Carvedilol 6.25 MG TAB PO SCH ×2 (10:20→20:21)
[2020-05-31] MEDS: Bupropion 150 MG XL TAB PO SCH (10:20)
[2020-05-31] MEDS: Cholecalciferol 1,000 UNITS (25 MCG) TAB PO SCH (10:21)
[2020-05-31] MEDS: Clopidogrel Bisulfate 75 MG TAB PO SCH (10:21)
[2020-05-31] MEDS: lamoTRIgine 100 MG TAB PO SCH (10:21)
[2020-05-31] MEDS: Aspirin Chewable 81 MG TAB PO SCH (10:21)
[2020-05-31] MEDS: Spironolactone 25 MG TAB PO SCH (10:22)
[2020-05-31] MEDS: Icosapent Ethyl 1 GM CAPSULE PO SCH ×2 (10:22→16:43)
[2020-05-31] MEDS: Enoxaparin Sodium 40 MG/0.4 ML SYRINGE SC SCH (10:41)
[2020-05-31] MEDS: Ubidecarenone 50 MG CAP PO SCH (11:41)
[2020-05-31] MEDS ORDERED: Gentamicin 80 MG/2 ML VIAL ONE (12:01)
[2020-05-31] MEDS ORDERED: CEFAZOLIN 1 GM VIAL ONE (12:01)
[2020-05-31] MEDS ORDERED: Fentanyl 100 MCG/2 ML VIAL ONE (12:46)
[2020-05-31] MEDS ORDERED: PROPOFOL 200 MG/20 ML VIAL ONE (14:35)
[2020-05-31] MEDS ORDERED: Ondansetron PF 4 MG/2 ML Vial ONE (14:35)
--- NOTE | 2020-05-31 15:28 | RAD ---
PORTABLE CHEST: Date: 05/31/2020 HISTORY: Post ICD placement. COMPARISON: 05/27/2020. FINDINGS/IMPRESSION: Dual lead pacemaker device has been placed. Leads appear adequately positioned. Postop sternotomy farooq nge with mild cardiomegaly. Vasculature within normal range. Mild atelectasis in the left lung base a ppears stable. No pneumothorax or acute interval change. POS: OFF
--- NOTE | 2020-05-31 16:44 | RAD ---
PORTABLE CHEST: Date: 05/31/2020 INDICATION: Post cardiac device placement. COMPARISON: 05/31/2020 at 1508 hours. FINDINGS: Dual lead pacemaker device again noted. Mild cardiomegaly with postop sternotomy change. No pneumotho rax or focal infiltrate. No interval change. IMPRESSION: Stable chest findings. POS: OFF
--- NOTE | 2020-05-31 16:59 | EKG ---
Test Reason : Blood Pressure : / mmHG Vent. Rate : 065 BPM Atrial Rate : 065 BPM P-R Int : 190 ms QRS Dur : 124 ms QT Int : 450 ms P-R-T Axes : 071 -56 117 degrees QTc Int : 468 ms Sinus rhythm with occasional Premature ventricular complexes Left axis deviation Non-specific intra-ventricular conduction delay Abnormal ECG When compared with ECG of 27-MAY-2020 21:59, (Unconfirmed) Vent. rate has decreased BY [address] Checo OJSEPH ([id number]) on 05/31/2020 4:58:52 PM Referred By: LOIDA Confirmed By:DR. Checo JOSEPH
--- NOTE | 2020-05-31 17:15 | PDOC.HOSPP ---
- Subjective Encounter Date: 05/31/20 Encounter Time: 12:00 Subjective: Patient seen for follow-up regarding congestive heart failure exacerbation. Reports feeling better. Did not have shortness of breath today morning. - Objective Vital Signs & Weight: Vital Signs (12 hours) Temp Pulse Pulse Pulse Resp BP BP 05/31/20 15:40 97.4 F L 72 15 05/31/20 11:22 97.9 F 70 16 05/31/20 10:20 135/81 05/31/20 09:37 84 72 135/74 05/31/20 08:14 05/31/20 07:25 97.6 F 89 14 BP BP Pulse Ox Pulse Ox Pulse Ox 05/31/20 15:40 119/77 96 05/31/20 11:22 131/73 99 05/31/20 10:20 05/31/20 09:37 124/76 98 97 05/31/20 08:14 93 L 05/31/20 07:25 137/84 97 Weight Weight 172 lb 11.2 oz I&O: 05/30/20 05/31/20 06/01/20 06:59 06:59 06:59 Intake Total 1574 940 Output Total 1300 150 Balance 274 790 Result Diagrams: 05/31/20 03:43 05/31/20 03:43 Additional Labs: Labs and MAR reviewed by [place] Hospitalist ROS - Review of Systems Respiratory: denies: cough, shortness of breath, SOB with excertion, pleuritic pain, wheezing Cardiovascular: denies: chest pain, palpitations, orthopnea, paroxysmal noc. dyspnea, edema, light headedness Gastrointestinal: denies: nausea, vomiting, abdominal pain, diarrhea, constipation, melena, hematochezia - Medication Medications: Active Medications Generic Name Dose Route Start Last Admin Trade Name Freq PRN Reason Stop Dose Admin Aspirin 81 mg 05/28/20 09:00 05/31/20 10:21 Aspirin Chewable 81 Mg Tab PO 81 mg DAILY [facility] Administration Atorvastatin Calcium 10 mg 05/29/20 21:00 05/30/20 20:55 Atorvastatin Calcium 10 Mg Tab PO 10 mg HS [facility] Administration Bupropion HCl 300 mg 05/29/20 09:00 05/31/20 10:20 Bupropion 150 Mg Xl Tab PO 300 mg QAM [facility] Administration Carvedilol 12.5 mg 05/28/20 09:00 05/31/20 10:20 Carvedilol 6.25 Mg Tab PO 12.5 mg BID [facility] Administration Cholecalciferol 2,000 units 05/30/20 09:00 05/31/20 10:21 Cholecalciferol 1,000 Units (25 Mcg) Tab PO 2,000 units DAILY [facility] Administration Clopidogrel Bisulfate 75 mg 05/28/20 09:00 05/31/20 10:21 Clopidogrel Bisulfate 75 Mg Tab PO 75 mg DAILY [facility] Administration Coenzyme Q10 100 mg 05/30/20 09:00 05/31/20 11:41 Ubidecarenone 50 Mg Cap PO 100 mg DAILY [facility] Administration Diphenhydramine HCl 25 mg 05/28/20 01:05 05/30/20 01:49 Diphenhydramine 50 Mg/Ml Vial IVP 25 mg [place]CALL PRN Administration Allergies Enoxaparin Sodium 40 mg 05/28/20 09:00 05/31/20 10:41 Enoxaparin Sodium 40 Mg/0.4 Ml Syringe SC Not Given [facility] Lamotrigine 100 mg 05/29/20 09:00 05/31/20 10:21 Lamotrigine 100 Mg Tab PO 100 mg DAILY [facility] Administration Miscellaneous Medication 2 gm 05/30/20 07:30 05/31/20 16:43 Icosapent Ethyl 1 Gm Capsule PO 2 gm BID-AC [facility] Administration Ondansetron HCl 4 mg 05/28/20 01:05 05/30/20 16:53 Ondansetron Odt 4 Mg Tab PO 4 mg Q6H PRN Administration Nausea/Vomiting Spironolactone 25 mg 05/31/20 09:00 05/31/20 10:22 Spironolactone 25 Mg Tab PO 25 mg DAILY [facility] Administration - Exam General Appearance: awake alert Eye: anicteric sclera Neck: supple Heart: RRR Respiratory: CTAB Gastrointestinal: soft, normal bowel sounds Extremities: no edema Musculoskeletal: normal tone Psychiatric: normal affect Hosp A/P - Plan -Assessment (1) Acute decompensated heart failure Code(s): I50.9 - HEART FAILURE, UNSPECIFIED Status: Acute (2) CAD (coronary artery disease) Code(s): I25.10 - ATHSCL HEART DISEASE OF [place] CORONARY ARTERY W/O ANG PCTRS Status: Chronic (3) HTN (hypertension) Code(s): I10 - ESSENTIAL (PRIMARY) HYPERTENSION Status: Chronic (4) HLD (hyperlipidemia) Code(s): E78.5 - HYPERLIPIDEMIA, UNSPECIFIED Status: Chronic (5) Abdominal pain Code(s): R10.9 - UNSPECIFIED ABDOMINAL PAIN Status: Resolved (6) Nausea & vomiting Code(s): R11.2 - NAUSEA WITH VOMITING, UNSPECIFIED Status: Resolved - Plan Plan: Patient clinically improving. Continue to ambulate patient. Patient is on Entresto for heart failure. Continue Wellbutrin. Patient is on Livalo and Vascepa for dyslipidemia. Hypertension is controlled and stable. Awaiting EP service input.
[2020-05-31] MEDS ORDERED: Magnesium Oxide 400 MG TAB PO SCH (19:00)
[2020-05-31] MEDS ORDERED: methylPREDNISolone Sod Succ/PF 125 MG/2 ML VIAL IVP SCH (19:00)
--- NOTE | 2020-05-31 20:03 | CON ---
DATE OF CONSULTATION: 05/31/2020 SERVICE: Advanced Heart Failure Transplant Cardiology Service. REASON FOR CONSULTATION: Management of acute on chronic heart failure with reduced ejection fraction. HISTORY OF PRESENT ILLNESS: Mr. Km Gonzales is a 70-year-old gentleman with heart failure with reduced ejection fraction due to ischemic cardiomyopathy, was admitted for acute decompensating heart failure. Mr. Gonzales' heart problem began in 2004. He experienced severe shortness of breath. Stress test suggested coronary artery disease. He underwent coronary artery bypass with DSOUZA to LAD and also vein graft to OM. He said he felt great afterwards. However, after 6 months, he began to feel short of breath and weak again. It was found most likely the DSOUZA to LAD graft was closed. They did not want to try a second bypass rather they started medical treatment for ischemic cardiomyopathy. He was on beta-kimo and also ZACHARIAH inhibitor. He did well for quite a while. He did retire in 2005, but works as a supply tech. In 2016, a high risk PCI was done. Two stents were placed in the left main with aid of Impella 2.5 at [facility]. He was told by doing that he will improve cardiac function. Mr. Gonzales said that it really did not help. He did not feel any difference. As late as summer that is about December 2019, he was able to walk as far as he want as far as we can tell. He and his moved from the [facility] to [place], [place], that is where their long-term home is. Then in March, he would have episodic severe shortness of breath and weakness. On bad days, he cannot really walk beyond few steps. He also began to develop abdominal bloating and also nausea. He also developed early satiety. In April 2020, he began to have episodes of severe cough. At one week, he became worse and worse. Eventually, he went to ER at [facility]. He was diagnosed with heart failure with elevated BNP at 1300. They gave him IV Lasix. Unfortunately, he had a reaction to the IV Lasix. He developed quite a bit of a rash and does not feel well. So, he eventually was placed on spironolactone. From that point onwards, he had good days and bad days. On good days, he can walk some. On the bad days, taking a few steps will cause severe short of breath. He was seen by Dr. Ayala. Entresto was started. He said he felt better with Entresto for a while. However, things took a bad turn on the week of . At the week of , he was have increasing severe shortness of breath and increasing weakness. He also had early satiety. He has nausea. Now, he needs to sleep with at least 2 pillows. Every night, he will have to wake up in about 2 to 3 hours after falling asleep, feeling severe shortness of breath, needing to sit up. Thus, he has paroxysmal nocturnal dyspnea. He also felt like his abdominal bloating is getting much worse. On Day, he was feeling very weak, very short of breath, and very bloated. The combination of ill feeling caused him to seek care. He was admitted to [facility] for acute on chronic heart failure. He was diuresed with Bumex. He said diuresing with Bumex felt quite good. However, it caused quite a bit of a rash and ill feeling again. There was nausea associated with it. He received IV Benadryl. IV Benadryl put him to sleep for a while. He said he is so weak and just out of it. Furthermore, he felt like that he has numbness in his lower leg and feet. This is also new to him. In July 2019, he can walk without limitation. In December 2019, he began to experience limitations. In March 2020, his walking distance is down to about 2 blocks. In April 2020, his walking distance decreased down to 1 block. In May 2020, his walking does not further decline to the short distances. Furthermore, he also experienced significant weight loss from 204 pounds decreasing down to 165 pounds. PAST MEDICAL HISTORY: 1. Coronary artery disease. This consists of coronary artery bypass in 2005 with the DSOUZA to LAD and also SVG to OM. However, the DSOUZA and LAD graft closed. He then received 2 stents to the left main in 2017. 2. Heart failure with reduced ejection fraction. It was reported that his ejection fraction in 2017 is around 25% to 30%. He has both systolic and diastolic dysfunction, and ischemic cardiomyopathy. 3. History of hypertension. SOCIAL HISTORY: 1. He does not smoke. 2. He does not drink alcohol anymore. 3. He does not use any illicit drugs. 4. He is to the same for 45 years. She is a retired ER nurse. 5. He has been retired since 2005 due to the heart condition. FAMILY HISTORY: He has a very strong cardiac history in the family. 1. His father of myocardial infarction at age 79. 2. His mother of congestive heart failure at age 62. 3. He has one brother who of congestive heart failure at age 54. 4. He has a sister of congestive heart failure at age 61. 5. He has 2 other sisters who both have congestive heart failure, but is still living. 6. He has another brother who of myocardial infarction at age 52. Thus, it is likely that he carries a genetic mutation for dilated cardiomyopathy. REVIEW OF SYSTEMS: GENERAL: There are no fever, chills, or productive cough. HEENT: There is no change in vision, hearing, or swallowing. PULMONARY: Please see HPI. CARDIAC: Please see HPI. GASTROINTESTINAL: Please see HPI. GENITOURINARY: He can still urinate on his own. MUSCULOSKELETAL: There is no complaint of muscle or joint pain. INTEGUMENT: Please see HPI. NEUROLOGIC: There are no new focal deficits or weaknesses. ALLERGIES AND SENSITIVITIES: Allergies include ZACHARIAH inhibitor causing angioedema. He also has strong sulfa allergy that is seen by reaction to Lasix and also Bumex. CURRENT MEDICATIONS: Include, 1. Aspirin 81 mg daily. 2. Atorvastatin 10 mg at bedtime. 3. Bupropion 300 mg daily. 4. Carvedilol 12.5 mg b.i.d. 5. Cefazolin at 2 g three times today for his GAME OPERATOR-D upgrade. 6. Keflex 500 mg p.o. q.i.d. 7. Cholecalciferol (vitamin D3) 2000 units p.o. daily. 8. Plavix 75 mg daily. 9. Coenzyme Q10 100 mg daily. 10. Enoxaparin 40 mg subcutaneous daily. 11. Lamotrigine 100 mg daily. 12. Vascepa 2 g b.i.d. 13. Entresto 49/51 two tabs twice a day. 14. Spironolactone 25 mg daily. PHYSICAL EXAMINATION: VITAL SIGNS: His latest vital signs are heart rate 72 and blood pressure 119/77. His oxygen saturation is 96% on room air. GENERAL: He is a thin gentleman, wearing glasses, alert and conversational, sitting comfortably in bed. HEENT: Show EOMI. PERRL. Oropharynx is benign. He has good dentition. NECK: His JVP is very elevated at 13 cm. It is near his earlobe. PULMONARY: There is good air movement bilaterally. There are no crackles bilaterally. CARDIAC: Regular rate and rhythm with 2/6 holosystolic murmur at the apex with radiation to the left axilla. There is a 3/6 holosystolic murmur at the left upper sternal border. There is also 2/6 diastolic murmur at the right sternal border. So consequently, he has murmurs of mitral regurgitation, tricuspid regurgitation, and aortic regurgitation. He also is demonstrating a right ventricular heave. His PMI is inferiorly and laterally displaced. Thus, he has dilated right ventricle and dilated LV too. ABDOMEN: Soft and nontender. Positive bowel sounds. However, it is distended and there is a bit of fluid wave, so there is fluid in his abdomen. EXTREMITIES: His lower extremities are with minimal edema. However, his lower extremity is cool to show that he is hypoperfused. NEUROLOGIC: He looks very fatigued. As I was talking to him, he will fade off. Thus, he has difficulty even staying awake during the physical exam. This showed that he has low cardiac output. LABORATORY DATA: His chemistry showed sodium 137, potassium 4, chloride 100, bicarb 29, BUN 24, creatinine 1.19, glucose 115, calcium at 8.8, and magnesium from several days ago is 1.9. His TSH is 1.0768, so this is normal. His echocardiogram from May 28, 2020, was reviewed. 1. His LVIDD is dilated at 7.3 cm. Thus, he has severe dilated left ventricle. 2. His left ventricular ejection fraction is 10% with severe global hypokinesis. 3. He has severe mitral regurgitation. 4. He has a dilated right ventricle. 5. He has decreased right ventricular function. 6. He has dilated right atrium and also dilated left atrium. 7. He has severe tricuspid regurgitation. 8. His TR pressure gradient estimated is 38 plus he has dilated IVC. Thus, it would give him estimated pulmonary systolic blood pressure of approximately 53. 9. His IVC is dilated and does not collapse with inspiration. ASSESSMENT: 70-year-old gentleman, likely resides in [place] Heart Association stage D and also [place] Heart Association class 3B heart failure with reduced ejection fraction. This is a combined ischemic and also nonischemic cardiomyopathy. From the echocardiogram and past notes, it really did not show much scar on his myocardium. He also has strong family history of heart failure. 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 His bypass graft went down. However, revascularization did not seem to help. He has both systolic and diastolic dysfunctions. He also has right ventricular dysfunction. That is what caused his congestion. It is likely that the failing of right ventricle is what triggered his current decompensation. Thus, we really need to save the right ventricle if he would have a chance of left ventricular assist device. His age is 70, so he is just outside the window of heart transplant. However, with biventricular failure, may be transplant is his only option. Thus, we need to refer him quickly. He also has hypertension that needs to be treated right now. It is not an issue. Unfortunately, his renal function is intact. Please see the following for my recommendations. RECOMMENDATIONS: 1. Please give Solu-Medrol 60 mg IV one dose now. It is to prevent further reaction from the sulfa allergy. 2. Please provide prednisone 40 mg p.o. daily for next 3 days. 3. Start milrinone at 0.125 mcg/kg/minute to see if the systolic blood pressure is greater than 100 after 2 hours and increase to 0.25 mcg/kg/minute. 4. Start supplementing his magnesium with magnesium oxide 400 mg b.i.d., first dose now. 5. Please use amiloride 10 mg daily. This is in addition to spironolactone. Amiloride does not have a sulfa moiety. Thus, it should not trigger any reactions. 6. We will request the pharmacy to order ethacrynic acid. Ethacrynic acid is a strong loop diuretic that does not have a sulfa moiety. However, [facility] currently is out of stock with this medication. 7. I will attempt to refer the patient to [facility] first. Reason for referral is urgent evaluation for advanced heart failure therapy. If [facility] does not take his insurance, then we will try [facility]. It has been a pleasure taking care of Mr. Km Gonzales. If any question, please give me a call. This total visit took about 80 minutes. These include personally performing history and physical, reading echocardiogram, reading number of previous cardiology reports, coordinating the care with multiple medical service, counseling and explaining the situation to the patient. Job ID: [id number] MTDD
[2020-05-31] MEDS: Milrinone Lactate/D5W 20 MG in Premix Bag 1 BAG IV SCH (20:18)
[2020-05-31] MEDS: Atorvastatin Calcium 10 MG TAB PO SCH (20:23)
[2020-05-31] MEDS ORDERED: Sacubitril 49 MG/Valsartan 51 MG TABLET PO SCH (21:00)
--- NOTE | 2020-05-31 22:07 | CON ---
DATE OF CONSULTATION: 05/31/2020 CONSULTING PHYSICIAN: Michael Velásquez MD REASON FOR CONSULTATION: Consideration for upgrade from single to Bi-V ICD, worsening cardiomyopathy. HISTORY OF PRESENT ILLNESS: Mr. Gonzales is a 70-year-old male with a history of ischemic cardiomyopathy with prior bypass in 2005. He recently established with Dr. Ayala for cardiology care last month. Also in 2017, he had his left main stented when his DSOUZA occluded. Historically, his EF has been severely reduced in the 20% to 25% range and has inclusion of a single-chamber Biotronik defibrillator. During this hospital stay, his ejection fraction has worsened more recently assessed at the 10% range by echocardiogram. He is seen to have an intraventricular conduction delay on EKG, and the question of upgrading to LOCKER PLANT ATTENDANT support was raised prompting EP consultation. Mr. Gonzales is resting in bed. His is bedside. They are very concerned about his condition and treatment options moving forward. They are interested, but hesitant about any type of procedure. He currently denies any heart racing, palpitations, chest pain, pressure, syncope, near syncope, stroke, stroke-like symptoms. Positive for recent shortness of breath that has resolved, but now he is able to lie flat with no respiratory distress since the IV diuretics over the weekend. He had presented to the hospital with increasing dyspnea, abdominal pain, nausea, and vomiting as well as orthopnea. REVIEW OF SYSTEMS: A 12-point review of systems, otherwise, unremarkable. PAST MEDICAL HISTORY: 1. Ischemic cardiomyopathy. Previous LVEF 20% to 25%. a. Echocardiogram 05/28/2020, LVEF 10% to 15%, LV size severely increased, also severe mitral regurgitation. 2. Coronary artery disease, status post coronary artery bypass graft in 2005. a. Status post stent to the left main when his DSOUZA was seen to be occluded. 3. Single-chamber ICD, Biotronik. ALLERGIES: ZACHARIAH INHIBITORS, FUROSEMIDE, LATEX, MORPHINE. HOME MEDICATIONS: 1. Wellbutrin 300 mg q.a.m. 2. Aspirin 81 mg daily. 3. CoQ10 daily. 4. Livalo 2 mg daily. 5. Vitamin D3, 2000 units daily. 6. Clopidogrel 75 mg at bedtime. 7. Aldactone 25 mg daily. 8. Lamotrigine 100 mg daily. 9. Entresto 49/51 b.i.d. 10. Coreg 12.5 mg b.i.d. 11. Vascepa 2 g b.i.d. SOCIAL HISTORY: Negative for alcohol, tobacco, or illicit drug use. He is . FAMILY HISTORY: Positive for coronary artery disease with his mother and multiple siblings. OBJECTIVE: VITAL SIGNS: 5 feet 9 inches, 172 pounds, BMI 25. GENERAL: The patient is alert, oriented. Speech is clear. Affect is quiet, but appropriate. He is in no apparent distress. Resting nearly flat in the bed at the time of the exam. HEENT: Normocephalic and atraumatic. Sclerae anicteric. EOMs are intact. Oral mucosa is moist and pink with adequate dentition. NECK: Supple without jugular venous distention. There is no lymphadenopathy. His trachea is midline. LUNGS: Clear to auscultation bilaterally with fine bibasilar crackles. HEART: Rate is with a crisp S1 and S2. PMI is displaced laterally. ABDOMEN: Soft and nontender without palpable masses. EXTREMITIES: Warm and dry to touch. Well perfused without clubbing, cyanosis, or edema. NEUROLOGIC: Grossly intact and nonfocal. Gait was not assessed. DATABASE: Telemetry and EKG show sinus rhythm with intraventricular conduction delay up to 135 msec. Atypical left bundle/nonspecific QRS widening. Occasional nonsustained VT is seen. IMPRESSION: 1. Ischemic cardiomyopathy with a worsening LVEF, now 10% to 15%. 2. Congestive heart failure. 3. 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 4. Medication rash, possibly related to Bumex. PLAN AND RECOMMENDATIONS: I had a long discussion with Mr. Gonzales and his regarding his current ICD, worsening cardiomyopathy, and intraventricular conduction delay including possible treatment options of upgrading his ICD to a biventricular device for cardiac resynchronization therapy. On EKG, his QRS is mildly widened; however, looking at his echocardiogram, there is evident asynchrony between his ventricles with abnormal septal wall movement. He does meet criteria for upgrade to an ICD with his QRS of at least 130 msec with a worsening cardiomyopathy. It is unclear the extent that it will be beneficial to him at this point, but his heart may be responsive to the additional support. We discussed the risks, benefits, and alternatives. They are going to consider other options and he is n.p.o. If they wish to move forward, we will proceed likely later today with upgrade to a Bi-V device, likely Medtronic given the lack of Biotronik support regionally. Thank you for allowing me to participate in the care of this patient. We will continue to follow. Job ID: [id number]
[2020-05-31] MEDS: CEFAZOLIN 2 GM in Premix Bag 1 BAG IVPB SCH (22:33)
[2020-06-01 04:30] LABS: #Lymphocytes 0.8 thou/uL (1.20-3.40); #Monocytes 0.1 thou/uL (0.11-0.59); #Neutrophils 5.8 thou/uL (1.40-6.50); %Basophils 0.5 % (0.0-1.0); %Eosinophils 0.3 % (0.0-10.0); %Lymphocytes 11.6 % (21.0-51.0); %Neutrophils 86.5 % (42.0-75.0); Hemoglobin 14.4 g/dL (14.0-18.0); Mean Corpuscular HGB CONC 32.8 g/dL (32.0-36.0); Mean Corpuscular Hemoglobin 32.3 pg (27.0-31.0); Mean Corpuscular Volume 98.6 fL (78.0-98.0); Mean Platelet Volume 9.6 fL (7.4-10.4); Platelet Count 143 thou/uL (130-400); RBC Distribution Width 13.3 % (11.5-14.5); Red Blood Cell (RBC) Count 4.45 mill/uL (4.70-6.10); White Blood Cell (WBC) Count 6.7 thou/uL (4.8-10.8)
[2020-06-01 04:36] LABS: INR-International Normal Ratio 1.2; Prothrombin Time 15.5 sec (12.0-14.7)
[2020-06-01 04:57] LABS: Anion Gap 13 mmol/L (10-20); BUN (Urea Nitrogen) 21 mg/dL (8.4-25.7); Calc. Creatinine Clearance 64 mL/min (70-130); Calcium 8.6 mg/dL (7.8-10.44); Carbon Dioxide 25 mmol/L (23-31); Chloride 102 mmol/L (98-107); Estimated GFR-MDRD 61; Glucose 193 mg/dL (83-110); Potassium 4.3 mmol/L (3.5-5.1); Sodium 136 mmol/L (136-145)
[2020-06-01] MEDS: CEFAZOLIN 2 GM in Premix Bag 1 BAG IVPB SCH (05:09)
[2020-06-01] MEDS: Bupropion 150 MG XL TAB PO SCH (08:06)
[2020-06-01] MEDS: Icosapent Ethyl 1 GM CAPSULE PO SCH ×2 (08:06→17:00)
[2020-06-01] MEDS: Sacubitril 49 MG/Valsartan 51 MG TABLET PO SCH (08:07)
[2020-06-01] MEDS: Clopidogrel Bisulfate 75 MG TAB PO SCH (08:07)
[2020-06-01] MEDS: Cephalexin 250 MG CAP PO SCH ×4 (08:07→20:24)
[2020-06-01] MEDS: Magnesium Oxide 400 MG TAB PO SCH ×2 (08:07→20:25)
[2020-06-01] MEDS: Ubidecarenone 50 MG CAP PO SCH (08:07)
[2020-06-01] MEDS: Aspirin Chewable 81 MG TAB PO SCH (08:07)
[2020-06-01] MEDS: lamoTRIgine 100 MG TAB PO SCH (08:08)
[2020-06-01] MEDS: Carvedilol 6.25 MG TAB PO SCH ×2 (08:08→20:24)
[2020-06-01] MEDS: Spironolactone 25 MG TAB PO SCH (08:08)
[2020-06-01] MEDS: Cholecalciferol 1,000 UNITS (25 MCG) TAB PO SCH (08:08)
[2020-06-01] MEDS: predniSONE 20 MG TAB PO SCH (08:09)
[2020-06-01] MEDS: Enoxaparin Sodium 40 MG/0.4 ML SYRINGE SC SCH (08:09)
[2020-06-01] MEDS ORDERED: Bisacodyl 5 MG TAB PO PRN (10:32)
[2020-06-01] MEDS ORDERED: Bisacodyl 5 MG TAB PO SCH (10:45)
--- NOTE | 2020-06-01 10:50 | PRG ---
DATE OF SERVICE: 06/01/2020 SUBJECTIVE: Mr. Gonzales had an excellent day today. He tolerated the start of milrinone 0.125 mcg/kg/minute, was increased to 0.25 mcg/kg/minute. He said that he slept very well overnight. This is the first night he did not experience proximal nocturnal dyspnea. However, his blood pressure did drop in the 90s. Due to lowering of the blood pressure, the nursing staff decreased his milrinone down to 0.125 mcg/kg. This morning, his blood pressure was steady on the rise again. He is currently feeling good. He said he has not felt this good in a while. He also said that his rash is not decreasing along his legs and thighs. REVIEW OF SYSTEMS: GENERAL: There is no fever, chills, or productive cough. HEENT: There is no change in vision, hearing, or swallowing. PULMONARY: He is breathing easier. CARDIAC: There is no palpitations, chest pain, or syncope. GI: There is no nausea, vomiting, or diarrhea. : He can urinate on his own. MUSCULOSKELETAL: There is no muscle pains or joint pains. INTEGUMENT: Please see HPI. NEUROLOGIC: There is no focal deficits or weaknesses. CURRENT MEDICATIONS: Include; 1. Amiloride 10 mg daily. 2. Aspirin 81 mg daily. 3. Atorvastatin 10 mg at bedtime. 4. Bupropion 300 mg daily. 5. Carvedilol 12.5 mg b.i.d. 6. Keflex 500 mg p.o. q.i.d. 7. Vitamin D3 of 2000 units daily. 8. Plavix 75 mg daily. 9. Coenzyme Q10 of 100 mg daily. 10. Enoxaparin 40 mg subcutaneous daily. 11. Lamotrigine 100 mg daily. 12. Magnesium oxide 400 mg b.i.d. 13. Milrinone currently at 0.125 mcg/kg/minute. 14. Vascepa 2 g p.o. b.i.d. 15. Prednisone 40 mg daily, this is for 3 days only. 16. Sacubitril/valsartan, which is Entresto at 49/51 tablet one tablet b.i.d. 17. Spironolactone 25 mg daily. OBJECTIVE: His telemetry was reviewed. There is a combination A sensed/V- paced, AV paced, and few PVCs. There are no concerning arrhythmias beyond that. VITAL SIGNS: Paced rhythm about 70 to 80 and blood pressure 105/55. GENERAL: He is alert and conversational, sitting up comfortably in bed. HEENT: Show EOMI. Oropharynx is benign with moist mucosa. NECK: JVP is elevated about 12 cm. PULMONARY: There is good air movement bilaterally; however, there are slight bibasilar crackles. CARDIAC: Regular rate and rhythm with question irregularity. There is normal S1 and S2; however, there is 3/6 holosystolic murmur at the apex with radiation to the left axilla. There is also 2/6 holosystolic murmur near the left sternal border. Consequently, he has mitral regurgitation, also tricuspid regurgitation murmurs. ABDOMEN: Mildly distended with some fluid wave. EXTREMITIES: His lower extremity has minimal edema. Palpable posterior tibial pulses. They are warm and better perfused today than yesterday. His in's and out's are 685 in and 950 out, it is slightly net negative. LABORATORY DATA: His laboratory values show sodium 136, potassium 4.3, BUN at 21, creatinine 1.18, and his magnesium is 2.0. His BNP has decreased from 3069 down to 1865. ASSESSMENT: 70-year-old gentleman has combination of nonischemic and ischemic cardiomyopathy. He resides in [place] Heart Association stage D, [place] Heart Association class 3B, heart failure with reduced ejection fraction with combined systolic and diastolic dysfunction. Currently, he is better compensated and just slightly volume overloaded. The milrinone seemed to have improve his situation. Combination of amiloride and spironolactone seemed to be enough diuretics for now. We will need to ask hospital to obtain ethacrynic acid since he has severe sulfa allergy. We were able to communicate with Dr. Twan Wild at [facility] last night. [facility] has tentatively accepted the patient. He is to undergo a financial clearance. He is at a window, where a left ventricular assist device is possible. If the right ventricular dysfunction gets any worse, then it will become impossible. He does have a right ventricular dysfunction too. That is the reason why that he is having abdominal fluid collection. At this point, transfer to [facility] with urgent LVAD even possibly heart transplant evaluation will be the best overall course. RECOMMENDATIONS: 1. Increase milrinone to 0.25 mcg/kg/minute. Please keep systolic blood pressure above 100. I will come back around to check about 3 to 5 hours and might increase it to 0.375 mcg/kg/minute. 2. Decrease Entresto to 24/ combination p.o. q.12 hours. This may be adjusted further. 3. We will monitor his urine output today on combination amiloride and spironolactone. This may be insufficient. If so, I will ask the hospital to obtain some ethacrynic acid. Ethacrynic acid is a much stronger loop diuretic. Ethacrynic acid does not have sulfa moiety, so it is usable for this patient. It has been a pleasure taking care of Mr. Gonzales. If any question, please give me a call. The visitation time is 35 minutes today. Job ID: [id number] MTDD
--- NOTE | 2020-06-01 12:36 | EKG ---
Test Reason : Blood Pressure : / mmHG Vent. Rate : 070 BPM Atrial Rate : 070 BPM P-R Int : 176 ms QRS Dur : 164 ms QT Int : 498 ms P-R-T Axes : 000 253 058 degrees QTc Int : 537 ms AV dual-paced rhythm Abnormal ECG When compared with ECG of 31-MAY-2020 10:06, Electronic ventricular pacemaker has replaced Sinus rhythm Confirmed by DR. Checo JOSEPH (3) on 06/01/2020 12:35:42 PM Referred By: [facility] Confirmed By:DR. Checo JOSEPH
--- NOTE | 2020-06-01 12:41 | EKG ---
Test Reason : Blood Pressure : / mmHG Vent. Rate : 073 BPM Atrial Rate : 073 BPM P-R Int : 178 ms QRS Dur : 136 ms QT Int : 452 ms P-R-T Axes : 070 -66 098 degrees QTc Int : 497 ms Electronic ventricular pacemaker When compared with ECG of 31-MAY-2020 15:19, (Unconfirmed) Vent. rate has increased BY [address] Checo JOSEPH (3) on 06/01/2020 12:41:07 PM Referred By: [facility] Confirmed By:DR. Checo JOSEPH
--- NOTE | 2020-06-01 16:21 | PDOC.EP ---
- Subjective Date: 06/01/20 Time: 08:00 Interval History: he is feeling well 1 day after upgrade to a Bi V ICD. He denies any significant pain or discomfort at the incision site. He is having no fevers chills malaise weakness. he is now on a Milrinone drip and has been presented with the option of potential transfer to [place] - Review of Systems Constitutional: reports: weakness. denies: chills, malaise Respiratory: reports: shortness of breath. denies: cough, dry, hemoptysis Cardiology: denies: chest pain, edema, heart racing, light headedness, passing out Gastrointestinal: denies: abdominal pain, constipation, diarrhea - Objective Allergies/Adverse Reactions: Allergies Allergy/AdvReac Type Severity Reaction Status Date / Time ZACHARIAH Inhibitors Allergy Verified 05/28/20 04:50 furosemide [From Lasix] Allergy Verified 05/28/20 04:50 latex Allergy Verified 05/28/20 04:50 morphine Allergy Verified 05/28/20 04:50 Current Medications Acetaminophen (Acetaminophen 325 Mg Tab) 650 mg PO Q4H PRN PRN Reason: Headache/Fever/Mild Pain (1-3) Acetaminophen (Acetaminophen 650 Mg Suppository) 650 mg NE Q4H PRN PRN Reason: Headache/Fever/Mild Pain (1-3) Hydrocodone Bitart/Acetaminophen (Hydrocodone/Acetaminophen 5/325 Mg Tablet) 1 tab PO Q4H PRN PRN Reason: Moderate Pain (4-6) Amiloride HCl (Amiloride 5 Mg Tab) 10 mg PO DAILY [facility] Last Admin: 06/01/20 08:08 Dose: 10 mg Documented by: Aspirin (Aspirin Chewable 81 Mg Tab) 81 mg PO DAILY [facility] Last Admin: 06/01/20 08:07 Dose: 81 mg Documented by: Atorvastatin Calcium (Atorvastatin Calcium 10 Mg Tab) 10 mg PO HS [facility] Last Admin: 05/31/20 20:23 Dose: 10 mg Documented by: Bisacodyl (Bisacodyl 5 Mg Tab) 10 mg PO DAILYPRN PRN PRN Reason: Constipation Bupropion HCl (Bupropion 150 Mg Xl Tab) 300 mg PO QAM [facility] Last Admin: 06/01/20 08:06 Dose: 300 mg Documented by: Carvedilol (Carvedilol 6.25 Mg Tab) 12.5 mg PO BID [facility] Last Admin: 06/01/20 08:08 Dose: 12.5 mg Documented by: Cephalexin (Cephalexin 250 Mg Cap) 500 mg PO QID [facility] Stop: 06/08/20 23:00 Last Admin: 06/01/20 14:23 Dose: 500 mg Documented by: Cholecalciferol (Cholecalciferol 1,000 Units (25 Mcg) Tab) 2,000 units PO DAILY [facility] Last Admin: 06/01/20 08:08 Dose: 2,000 units Documented by: Clopidogrel Bisulfate (Clopidogrel Bisulfate 75 Mg Tab) 75 mg PO DAILY [facility] Last Admin: 06/01/20 08:07 Dose: 75 mg Documented by: Coenzyme Q10 (Ubidecarenone 50 Mg Cap) 100 mg PO DAILY [facility] Last Admin: 06/01/20 08:07 Dose: 100 mg Documented by: Diphenhydramine HCl (Diphenhydramine 50 Mg/Ml Vial) 25 mg IVP WILLCALL PRN PRN Reason: Allergies Last Admin: 05/30/20 01:49 Dose: 25 mg Documented by: Enoxaparin Sodium (Enoxaparin Sodium 40 Mg/0.4 Ml Syringe) 40 mg SC 0900 [facility] Last Admin: 06/01/20 08:09 Dose: 40 mg Documented by: Milrinone Lactate/Dextrose 20 (mg/ Device) 100 mls @ 0 mls/hr IV INF [facility]; Protocol Last Admin: 05/31/20 20:18 Dose: 100 mls Documented by: Lamotrigine (Lamotrigine 100 Mg Tab) 100 mg PO DAILY [facility] Last Admin: 06/01/20 08:08 Dose: 100 mg Documented by: Magnesium Oxide (Magnesium Oxide 400 Mg Tab) 400 mg PO BID [facility] Last Admin: 06/01/20 08:07 Dose: 400 mg Documented by: Miscellaneous Medication (Icosapent Ethyl 1 Gm Capsule) 2 gm PO BID-AC [facility] Last Admin: 06/01/20 08:06 Dose: 2 gm Documented by: Ondansetron HCl (Ondansetron Odt 4 Mg Tab) 4 mg PO Q6H PRN PRN Reason: Nausea/Vomiting Last Admin: 05/30/20 16:53 Dose: 4 mg Documented by: Ondansetron HCl (Ondansetron Pf 4 Mg/2 Ml Vial) 4 mg IVP Q6H PRN PRN Reason: Nausea/Vomiting Prednisone (Prednisone 20 Mg Tab) 40 mg PO DAILY [facility] Stop: 06/03/20 09:01 Last Admin: 06/01/20 08:09 Dose: 40 mg Documented by: Sacubitril/Valsartan (Sacubitril 24mg/Valsartan 26mg Tab) 1 tab PO BID [facility] Spironolactone (Spironolactone 25 Mg Tab) 25 mg PO DAILY [facility] Last Admin: 06/01/20 08:08 Dose: 25 mg Documented by: Vital Signs & Weight: Vital Signs Temp Pulse Pulse Pulse Resp BP BP 06/01/20 15:31 97.9 F 70 18 06/01/20 11:16 98.2 F 75 16 06/01/20 11:05 06/01/20 10:29 84 71 127/65 113/57 L 06/01/20 08:02 97.7 F 77 18 BP Pulse Ox 06/01/20 15:31 109/57 L 97 06/01/20 11:16 110/58 L 95 06/01/20 11:05 95 06/01/20 10:29 06/01/20 08:02 139/73 95 Weight 172 lb I/O: I/O 05/31/20 06/01/20 06/02/20 06:59 06:59 06:59 Intake Total 940 685 Output Total 150 950 Balance 790 -265 - Physical Exam General: alert & oriented x3, no apparent distress, speech clear HEENT: mucus membranes moist, normocephaly, EOMI Neck: supple neck, midline trachea, JVD/HJR Cardiology: regular rate and rhythm, no murmur, PMI nondisplaced Lungs: no wheezes, no rales, bibasilar rales Neurology: cranial nerve 2-12 intact, grossly intact, no lateralizing findings Abdomen: unremarkable, active bowel sounds, no pulsations/bruits. negative: HJR negative Extremities: dry, strong pulses, warm - Labs Result Diagrams: 06/01/20 04:09 06/01/20 04:09 - EKG Interpretation EKG Method: Telemetry EKG shows: Sinus rhythm - Device Device: biventricular, defibrillator Device Result: [email or web address] - Assessment/Plan Assessment/Plan: IMPRESSION: 1. Ischemic cardiomyopathy with a worsening LVEF, now 10% to 15%. 2. Congestive heart failure. 3. 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 4. Medication rash, possibly related to Bumex. 5. upgrade to BiV ICD 05/31/2020 continue Keflex x7 days post implant. Device check this morning shows stable function and chest x-ray is negative for pneumothorax. Continues to benefit from consistent PUBLICATION MANAGER pacing reporting slightly less shortness of breath.
--- NOTE | 2020-06-01 16:59 | SPC ---
PICC PLACEMENT ULTRASOUND-GUIDED VENOUS ACCESS: (Peripherally inserted central catheter) DATE: 06/01/2020 HISTORY: 70-year-old male with congestive heart failure requiring cardiac IV medication TECHNIQUE: Catheter caliber: 5 [place] Catheter trim length:45.5 cm Catheter lumen number:single Catheter tip location:right atrium Vein accessed:right basilic Total fluoroscopy time: 0.5 min. Dose area product: 1530 mGy*cm^2 Signed, informed consent was obtained. A tourniquet was applied at the proximal aspect of the arm. Th e arm was prepped and draped in the usual sterile fashion. A 25-gauge needle was used to applied buffered lidocaine superficially. The vein was punctured with a 21-gauge micropuncture needle under u ltrasound guidance. A 0.018 inch guidewire was advanced through the micropuncture needle and into the vein. Under fluoroscopic guidance, the guidewire was advanced to the superior vena cava. The PICC was flushed and trimmed to the appropriate length. The micropuncture needle was exchanged over the guidewire for a 5 [place] peel-away dilator sheath. The dilator was exchanged over the guidewire for t he PICC, which was then further advanced under fluoroscopy. The sheath and guidewire were removed. The PICC was flushed again and secured in place at the arm after adjustment of tip position. The moise ent tolerated the procedure well. There was no complication. IMPRESSION: Successful placement of PICC (peripherally inserted central catheter).
[2020-06-01] MEDS: Milrinone Lactate/D5W 20 MG in Premix Bag 1 BAG IV SCH (17:19)
--- NOTE | 2020-06-01 18:37 | PDOC.HOSPP ---
- Subjective Encounter Date: 06/01/20 Encounter Time: 17:00 Subjective: Patient seen for follow-up regarding congestive heart failure exacerbation. He denies chest pain or shortness of breath. - Objective Vital Signs & Weight: Vital Signs (12 hours) Temp Pulse Pulse Pulse Resp BP BP 06/01/20 15:31 97.9 F 70 18 06/01/20 11:16 98.2 F 75 16 06/01/20 11:05 06/01/20 10:29 84 71 127/65 113/57 L 06/01/20 08:02 97.7 F 77 18 BP Pulse Ox 06/01/20 15:31 109/57 L 97 06/01/20 11:16 110/58 L 95 06/01/20 11:05 95 06/01/20 10:29 06/01/20 08:02 139/73 95 Weight Weight 172 lb I&O: 05/31/20 06/01/20 06/02/20 06:59 06:59 06:59 Intake Total 940 685 720 Output Total 049 178 7754 Balance 352 -539 -514 Result Diagrams: 06/01/20 04:09 06/01/20 04:09 Additional Labs: I reviewed patient's labs and MAR Hospitalist ROS - Review of Systems Respiratory: reports: SOB with excertion. denies: cough, pleuritic pain, wheezing Cardiovascular: denies: chest pain, palpitations, orthopnea, paroxysmal noc. dyspnea, edema, light headedness - Medication Medications: Active Medications Generic Name Dose Route Start Last Admin Trade Name Freq PRN Reason Stop Dose Admin Amiloride HCl 10 mg 06/01/20 09:00 06/01/20 08:08 Amiloride 5 Mg Tab PO 10 mg DAILY [facility] Administration Aspirin 81 mg 05/28/20 09:00 06/01/20 08:07 Aspirin Chewable 81 Mg Tab PO 81 mg DAILY [facility] Administration Atorvastatin Calcium 10 mg 05/29/20 21:00 05/31/20 20:23 Atorvastatin Calcium 10 Mg Tab PO 10 mg HS [facility] Administration Bupropion HCl 300 mg 05/29/20 09:00 06/01/20 08:06 Bupropion 150 Mg Xl Tab PO 300 mg QAM [facility] Administration Carvedilol 12.5 mg 05/28/20 09:00 06/01/20 08:08 Carvedilol 6.25 Mg Tab PO 12.5 mg BID [facility] Administration Cephalexin 500 mg 06/01/20 09:00 06/01/20 17:00 Cephalexin 250 Mg Cap PO 06/08/20 23:00 500 mg QID [facility] Administration Cholecalciferol 2,000 units 05/30/20 09:00 06/01/20 08:08 Cholecalciferol 1,000 Units (25 Mcg) Tab PO 2,000 units DAILY [facility] Administration Clopidogrel Bisulfate 75 mg 05/28/20 09:00 06/01/20 08:07 Clopidogrel Bisulfate 75 Mg Tab PO 75 mg DAILY [facility] Administration Coenzyme Q10 100 mg 05/30/20 09:00 06/01/20 08:07 Ubidecarenone 50 Mg Cap PO 100 mg DAILY [facility] Administration Diphenhydramine HCl 25 mg 05/28/20 01:05 05/30/20 01:49 Diphenhydramine 50 Mg/Ml Vial IVP 25 mg WILLCALL PRN Administration Allergies Enoxaparin Sodium 40 mg 05/28/20 09:00 06/01/20 08:09 Enoxaparin Sodium 40 Mg/0.4 Ml Syringe SC 40 mg 0900 [facility] Administration Milrinone Lactate/Dextrose 20 100 mls @ 8.813 mls/hr 05/31/20 19:15 06/01/20 17:19 mg/ Device IV 100 mls INF [facility] Administration Protocol 0.375 MCG/KG/MIN Lamotrigine 100 mg 05/29/20 09:00 06/01/20 08:08 Lamotrigine 100 Mg Tab PO 100 mg DAILY [facility] Administration Magnesium Oxide 400 mg 06/01/20 09:00 06/01/20 08:07 Magnesium Oxide 400 Mg Tab PO 400 mg BID [facility] Administration Miscellaneous Medication 2 gm 05/30/20 07:30 06/01/20 17:00 Icosapent Ethyl 1 Gm Capsule PO 2 gm BID-AC [facility] Administration Ondansetron HCl 4 mg 05/28/20 01:05 05/30/20 16:53 Ondansetron Odt 4 Mg Tab PO 4 mg Q6H PRN Administration Nausea/Vomiting Prednisone 40 mg 06/01/20 09:00 06/01/20 08:09 Prednisone 20 Mg Tab PO 06/03/20 09:01 40 mg DAILY [facility] Administration Spironolactone 25 mg 05/31/20 09:00 12/01/20 08:08 Spironolactone 25 Mg Tab PO 25 mg DAILY [facility] Administration - Exam General Appearance: awake alert Eye: anicteric sclera ENT: no oropharyngeal lesions Neck: supple Heart: RRR Respiratory - other findings: Bibasilar crackles Extremities: no edema Skin: no rashes Psychiatric: normal affect, normal behavior Hosp A/P - Plan -Assessment (1) Acute decompensated heart failure Code(s): I50.9 - HEART FAILURE, UNSPECIFIED Status: Acute (2) CAD (coronary artery disease) Code(s): I25.10 - ATHSCL HEART DISEASE OF [place] CORONARY ARTERY W/O ANG PCTRS Status: Chronic (3) HTN (hypertension) Code(s): I10 - ESSENTIAL (PRIMARY) HYPERTENSION Status: Chronic (4) HLD (hyperlipidemia) Code(s): E78.5 - HYPERLIPIDEMIA, UNSPECIFIED Status: Chronic (5) Abdominal pain Code(s): R10.9 - UNSPECIFIED ABDOMINAL PAIN Status: Resolved (6) Nausea & vomiting Code(s): R11.2 - NAUSEA WITH VOMITING, UNSPECIFIED Status: Resolved - Plan Plan: Patient has been started on milrinone drip. Awaiting transfer to tertiary care center for further management. Continue to ambulate patient. Continue Entresto for heart failure. Continue Wellbutrin. Continue Livalo and Vascepa for dyslipidemia. Hypertension is controlled and stable.
[2020-06-01] MEDS: Atorvastatin Calcium 10 MG TAB PO SCH (20:25)
[2020-06-02] MEDS: Milrinone Lactate/D5W 20 MG in Premix Bag 1 BAG IV SCH ×2 (05:15→16:54)
[2020-06-02 07:50] LABS: #Eosinphils 0.1 thou/uL (0.0-0.7); #Lymphocytes 1.1 thou/uL (1.20-3.40); #Monocytes 1.4 thou/uL (0.11-0.59); #Neutrophils 14.6 thou/uL (1.40-6.50); %Basophils 0.2 % (0.0-1.0); %Eosinophils 0.4 % (0.0-10.0); %Lymphocytes 6.1 % (21.0-51.0); %Monocytes 8.1 % (0.0-10.0); %Neutrophils 85.2 % (42.0-75.0); Hemoglobin 14.5 g/dL (14.0-18.0); Mean Corpuscular HGB CONC 32.5 g/dL (32.0-36.0); Mean Corpuscular Hemoglobin 32.7 pg (27.0-31.0); Mean Platelet Volume 9.3 fL (7.4-10.4); Platelet Count 133 thou/uL (130-400); RBC Distribution Width 13.5 % (11.5-14.5); Red Blood Cell (RBC) Count 4.42 mill/uL (4.70-6.10); White Blood Cell (WBC) Count 17.1 thou/uL (4.8-10.8)
[2020-06-02 08:13] LABS: ALT (SGPT) 39 U/L (8-55); AST (SGOT) 19 U/L (5-34); Albumin 3.3 g/dL (3.4-4.8); Alkaline Phosphatase 61 U/L (40-110); Anion Gap 9 mmol/L (10-20); BUN (Urea Nitrogen) 18 mg/dL (8.4-25.7); Bilirubin, Total 0.4 mg/dL (0.2-1.2); Calc. Creatinine Clearance 84 mL/min (70-130); Calcium 8.8 mg/dL (7.8-10.44); Carbon Dioxide 27 mmol/L (23-31); Chloride 105 mmol/L (98-107); Estimated GFR-MDRD 83; Globulin 2.2 g/dL (2.4-3.5); Glucose 162 mg/dL (83-110); Potassium 4.4 mmol/L (3.5-5.1); Protein, Total 5.5 g/dL (5.8-8.1); Sodium 137 mmol/L (136-145)
[2020-06-02] MEDS ORDERED: methylPREDNISolone Sod Succ 40 MG VIAL IVP SCH (09:15)
[2020-06-02] MEDS: Enoxaparin Sodium 40 MG/0.4 ML SYRINGE SC SCH (10:03)
[2020-06-02] MEDS: Ubidecarenone 50 MG CAP PO SCH (10:03)
[2020-06-02] MEDS: Carvedilol 6.25 MG TAB PO SCH ×2 (10:04→20:26)
[2020-06-02] MEDS: Magnesium Oxide 400 MG TAB PO SCH ×2 (10:04→20:26)
[2020-06-02] MEDS: Icosapent Ethyl 1 GM CAPSULE PO SCH ×2 (10:04→16:35)
[2020-06-02] MEDS: Bupropion 150 MG XL TAB PO SCH (10:04)
[2020-06-02] MEDS: Cholecalciferol 1,000 UNITS (25 MCG) TAB PO SCH (10:05)
[2020-06-02] MEDS: Aspirin Chewable 81 MG TAB PO SCH (10:05)
[2020-06-02] MEDS: Clopidogrel Bisulfate 75 MG TAB PO SCH (10:05)
[2020-06-02] MEDS: Spironolactone 25 MG TAB PO SCH (10:05)
[2020-06-02] MEDS: lamoTRIgine 100 MG TAB PO SCH (10:05)
[2020-06-02] MEDS: Cephalexin 250 MG CAP PO SCH (10:06)
[2020-06-02] MEDS: predniSONE 20 MG TAB PO SCH (10:06)
[2020-06-02] MEDS ORDERED: Loratadine 10 MG TAB PO SCH (10:30)
--- NOTE | 2020-06-02 10:54 | PDOC.EP ---
- Subjective Date: 06/02/20 Time: 07:45 Interval History: no heart rhythm of ICD related concerns overnight. - Review of Systems Constitutional: reports: weakness. denies: chills Respiratory: reports: shortness of breath. denies: cough, dry, hemoptysis, sputum Cardiology: reports: paroxysmal noc. dyspnea. denies: chest pain, edema, heart racing, light headedness Gastrointestinal: denies: abdominal pain, constipation, diarrhea Musculoskeletal: denies: unstable gait, falls, neck pain - Objective Allergies/Adverse Reactions: Allergies Allergy/AdvReac Type Severity Reaction Status Date / Time ZACHARIAH Inhibitors Allergy Verified 05/28/20 04:50 furosemide [From Lasix] Allergy Verified 05/28/20 04:50 latex Allergy Verified 05/28/20 04:50 morphine Allergy Verified 05/28/20 04:50 Current Medications Acetaminophen (Acetaminophen 325 Mg Tab) 650 mg PO Q4H PRN PRN Reason: Headache/Fever/Mild Pain (1-3) Acetaminophen (Acetaminophen 650 Mg Suppository) 650 mg NM Q4H PRN PRN Reason: Headache/Fever/Mild Pain (1-3) Hydrocodone Bitart/Acetaminophen (Hydrocodone/Acetaminophen 5/325 Mg Tablet) 1 tab PO Q4H PRN PRN Reason: Moderate Pain (4-6) Amiloride HCl (Amiloride 5 Mg Tab) 10 mg PO DAILY [facility] Last Admin: 06/02/20 10:03 Dose: 10 mg Documented by: Aspirin (Aspirin Chewable 81 Mg Tab) 81 mg PO DAILY [facility] Last Admin: 06/02/20 10:05 Dose: 81 mg Documented by: Atorvastatin Calcium (Atorvastatin Calcium 10 Mg Tab) 10 mg PO HS [facility] Last Admin: 06/01/20 20:25 Dose: 10 mg Documented by: Bisacodyl (Bisacodyl 5 Mg Tab) 10 mg PO DAILYPRN PRN PRN Reason: Constipation Bupropion HCl (Bupropion 150 Mg Xl Tab) 300 mg PO QAM [facility] Last Admin: 06/02/20 10:04 Dose: 300 mg Documented by: Carvedilol (Carvedilol 6.25 Mg Tab) 12.5 mg PO BID [facility] Last Admin: 06/02/20 10:04 Dose: 12.5 mg Documented by: Cholecalciferol (Cholecalciferol 1,000 Units (25 Mcg) Tab) 2,000 units PO DAILY [facility] Last Admin: 06/02/20 10:05 Dose: 2,000 units Documented by: Clopidogrel Bisulfate (Clopidogrel Bisulfate 75 Mg Tab) 75 mg PO DAILY [facility] Last Admin: 06/02/20 10:05 Dose: 75 mg Documented by: Coenzyme Q10 (Ubidecarenone 50 Mg Cap) 100 mg PO DAILY [facility] Last Admin: 06/02/20 10:03 Dose: 100 mg Documented by: Diphenhydramine HCl (Diphenhydramine 50 Mg/Ml Vial) 25 mg IVP [facility]CALL PRN PRN Reason: Allergies Last Admin: 05/30/20 01:49 Dose: 25 mg Documented by: Enoxaparin Sodium (Enoxaparin Sodium 40 Mg/0.4 Ml Syringe) 40 mg SC 0900 [facility] Last Admin: 06/02/20 10:03 Dose: 40 mg Documented by: Milrinone Lactate/Dextrose 20 (mg/ Device) 100 mls @ 8.813 mls/hr IV INF [facility]; Protocol Last Admin: 06/02/20 05:15 Dose: 100 mls Documented by: Lamotrigine (Lamotrigine 100 Mg Tab) 100 mg PO DAILY [facility] Last Admin: 06/02/20 10:05 Dose: 100 mg Documented by: Loratadine (Loratadine 10 Mg Tab) 10 mg PO DAILY [facility] Loratadine (Loratadine 10 Mg Tab) 10 mg PO NOW [facility] Stop: 06/02/20 12:30 Magnesium Oxide (Magnesium Oxide 400 Mg Tab) 400 mg PO BID [facility] Last Admin: 06/02/20 10:04 Dose: 400 mg Documented by: Methylprednisolone Sodium Succinate (Methylprednisolone Sod Succ 40 Mg Vial) 60 mg IVP NOW [facility] Stop: 06/02/20 12:00 Miscellaneous Medication (Icosapent Ethyl 1 Gm Capsule) 2 gm PO BID-AC [facility] Last Admin: 06/02/20 10:04 Dose: 2 gm Documented by: Ondansetron HCl (Ondansetron Odt 4 Mg Tab) 4 mg PO Q6H PRN PRN Reason: Nausea/Vomiting Last Admin: 05/30/20 16:53 Dose: 4 mg Documented by: Ondansetron HCl (Ondansetron Pf 4 Mg/2 Ml Vial) 4 mg IVP Q6H PRN PRN Reason: Nausea/Vomiting Prednisone (Prednisone 20 Mg Tab) 40 mg PO DAILY [facility] Stop: 06/03/20 09:01 Last Admin: 06/02/20 10:06 Dose: Not Given Documented by: Sacubitril/Valsartan (Sacubitril 24mg/Valsartan 26mg Tab) 1 tab PO BID [facility] Last Admin: 06/02/20 10:03 Dose: 1 tab Documented by: Spironolactone (Spironolactone 25 Mg Tab) 25 mg PO DAILY [facility] Last Admin: 06/02/20 10:05 Dose: 25 mg Documented by: Vital Signs & Weight: Vital Signs Temp Pulse Resp BP BP Pulse Ox 06/02/20 10:04 132/82 06/02/20 07:20 97.6 F 72 17 122/64 94 L 06/02/20 04:00 97.4 F L 70 18 103/59 L 98 Weight 174 lb 9.6 oz I/O: I/O 06/01/20 06/02/20 06/03/20 06:59 06:59 06:59 Intake Total 685 1255 Output Total 950 2150 Balance -265 -895 - Physical Exam General: alert & oriented x3, no apparent distress, speech clear, affect appropriate HEENT: mucus membranes moist, normocephaly Neck: supple neck, midline trachea, no masses, no lymphadenopathy, JVD/HJR Cardiology: regular rate and rhythm, no murmur, regular rate Lungs: clear to auscultation, decreased breath sounds Neurology: cranial nerve 2-12 intact, grossly intact, coordination normal Abdomen: unremarkable, active bowel sounds. negative: HJR negative (+) - Labs Result Diagrams: 06/02/20 07:32 06/02/20 07:32 - EKG Interpretation EKG Method: Telemetry EKG shows: Sinus rhythm - Device Device: biventricular, defibrillator Device Result: [employer] - Assessment/Plan Assessment/Plan: IMPRESSION: 1. Ischemic cardiomyopathy with a worsening LVEF, now 10% to 15%. 2. Congestive heart failure. 3. 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 4. Medication rash, possibly related to Bumex. 5. upgrade to BiV ICD 05/31/2020. continue Keflex x7 days post implant. Stable device and arrhythmia status. Continues to benefit from consistent DRYING SUPERVISOR pacing. Pending transfer for transplant options. EP would sign off. 2 week wound check in office requested.
--- NOTE | 2020-06-02 11:19 | PRG ---
DATE OF SERVICE: 06/02/2020 SUBJECTIVE: Mr. Gonzales did very well during the day on milrinone. With milrinone, he was able to increase the walking distance and breath easier. He was able to sleep overnight without having PND. He felt good with that. Keflex was started yesterday, but towards the end of evening, he noticed that he has increasing rash and pruritus. Around his groin and all over the body the pruritus and redness worsened overnight. This morning, he woke up with much more erythema and also pruritus. REVIEW OF SYSTEMS: GENERAL: There is no fever, chills, or productive cough. HEENT: There is no change in vision, hearing, or swallowing. PULMONARY: Please see HPI. CARDIAC: Please see HPI. GI: He says a little bit constipated. : He is urinating well on his own. MUSCULOSKELETAL: There is no joint pain or muscle pain. INTEGUMENT: Please see HPI. NEUROLOGIC: There are no focal deficits or weaknesses. CURRENT MEDICATIONS: 1. Amiloride 10 mg daily. 2. Aspirin 81 mg daily. 3. Atorvastatin 10 mg daily. 4. Bupropion 300 mg daily. 5. Carvedilol 12.5 mg b.i.d. 6. Keflex 500 mg four times daily, started yesterday. 7. Vitamin D3 of 2000 units daily. 8. Plavix 75 mg daily. 9. Coenzyme Q10 of 100 mg daily. 10. Enoxaparin 40 mg subcutaneous daily. 11. Lamotrigine 100 mg daily. 12. Magnesium oxide 400 mg twice a day. 13. Milrinone at 0.375 mcg/kg/minute. 14. Sacubitril/valsartan at combination one tablet b.i.d. 15. Spironolactone 25 mg daily. OBJECTIVE: His telemetry was reviewed. The majority is A-sensed, V-paced, it is A-sensed biventricular paced. There were also A-paced/V-paced. There are no concerning arrhythmias. VITAL SIGNS: His latest vitals are heart rate 70, blood pressure 103/59. GENERAL: He is alert and conversational, reclining comfortably in bed. He is energetic. He is breathing easy. HEENT: Show EOMI. Oropharynx is benign with moist mucosa. NECK: His JVP is elevated about 10 cm with positive hepatojugular reflux. PULMONARY: There is good air movement bilaterally. There are no crackles today. CARDIAC: Regular rate and rhythm with normal S1 and S2. There is 2/6 holosystolic murmur at the apex with radiation to the left axilla. There is also 3/6 holosystolic murmur at the left sternal border. So, consequently, he has mitral regurgitation and tricuspid regurgitation. There is also a right ventricular heave. ABDOMEN: Soft, nontender. Positive bowel sounds. EXTREMITIES: There is minimal or no edema of the feet. INTEGUMENT: He has more erythema that is patchy, so he has a rash that is extending around the entire body, prominently shoulders and arms and in the groin area. This is much worse than yesterday. LABORATORY DATA: Chemistry shows sodium 137, potassium 4.4, bicarb 27, BUN 18, creatinine 0.9. His BNP has decreased from 1865 down to 968. So, his heart failure is also improving. ASSESSMENT: 70-year-old gentleman resides in [place] Heart Association stage D, [place] Heart Association class 4 heart failure with reduced ejection fraction. 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 His LVEF is about 10%. He also has some degree of RV dysfunction. [facility] has agreed to accept this patient for urgent left ventricular assist device evaluation. Milrinone and perhaps new Bi-V (PIT RECORDER-D) has helped this patient significantly. He had regain of function. He is able to sleep without PND. He has regained ability to walk well. Thus, he now appears well compensated. He is needing combination of amiloride and also spironolactone to keep him euvolemic as much as possible. Now, he has a new reaction, most likely due to Keflex. This needs to be stopped and treated. Please see the following for my detailed recommendation. RECOMMENDATIONS: 1. Stop Keflex now. 2. Stop prednisone for now and replace with Solu-Medrol 60 mg IV one dose to quiet down the inflammation. 3. Please give Zyrtec 10 mg p.o. daily, first dose now. This has less or no sedating effect. 4. Continue milrinone at 0.375 mcg/kg/minute. 5. We will continue to supplement his electrolytes to keep the potassium above 4 and magnesium above 2, today it is 2.3. It has been a pleasure taking care of Mr. Gonzales. If you have any questions, please give me a call. The visitation time today is 35 minutes. Job ID: [id number] [id number]
[2020-06-02 12:43] LABS: Bacteria/HPF None Seen HPF (None Seen); Bilirubin Negative (Negative); Blood, Urine Negative (Negative); Clarity Clear (Clear); Glucose, Urine (Dipstick) Normal (Negative); Ketone, Urine Negative (Negative); Leukocyte Negative Leu/uL (Negative); Nitrite Negative (Negative); Protein, Urine (Dipstick) Negative (Neg-Trace); RBC/HPF 0-3 HPF (0-3); Specific Gravity, Urine 1.018 (1.002-1.036); Squamous Epithelial None Seen HPF (0-3); Urobilinogen Normal mg/dL (Less than 2); WBC/HPF 0-3 HPF (0-3)
[2020-06-02 12:48] LABS: Urine Culture Reflex No No
--- NOTE | 2020-06-02 17:17 | PDOC.HOSPP ---
- Subjective Encounter Date: 06/02/20 Encounter Time: 17:13 Subjective: Seen for follow-up for CHF exacerbation. He is ambulating in hallways, reports feeling better. - Objective Vital Signs & Weight: Vital Signs (12 hours) Temp Pulse Resp BP BP Pulse Ox 06/02/20 11:15 97.7 F 70 16 119/60 100 06/02/20 10:04 132/82 06/02/20 07:20 97.6 F 72 17 122/64 94 L Weight Weight 174 lb 9.6 oz I&O: 06/01/20 06/02/20 06/03/20 06:59 06:59 06:59 Intake Total 685 1255 Output Total 950 2150 Balance -265 -895 Result Diagrams: 06/02/20 07:32 06/02/20 07:32 Additional Labs: Labs and MAR reviewed by [facility] Hospitalist ROS - Review of Systems Cardiovascular: denies: chest pain, palpitations, orthopnea, paroxysmal noc. dyspnea, edema, light headedness Gastrointestinal: denies: nausea, vomiting, abdominal pain, diarrhea, constipation, melena, hematochezia - Medication Medications: Active Medications Generic Name Dose Route Start Last Admin Trade Name Freq PRN Reason Stop Dose Admin Amiloride HCl 10 mg 06/01/20 09:00 06/02/20 10:03 Amiloride 5 Mg Tab PO 10 mg DAILY EFRAÍN Administration Aspirin 81 mg 05/28/20 09:00 06/02/20 10:05 Aspirin Chewable 81 Mg Tab PO 81 mg DAILY EFRAÍN Administration Atorvastatin Calcium 10 mg 05/29/20 21:00 06/01/20 20:25 Atorvastatin Calcium 10 Mg Tab PO 10 mg HS EFRAÍN Administration Bupropion HCl 300 mg 05/29/20 09:00 06/02/20 10:04 Bupropion 150 Mg Xl Tab PO 300 mg QAM EFRAÍN Administration Carvedilol 12.5 mg 05/28/20 09:00 06/02/20 10:04 Carvedilol 6.25 Mg Tab PO 12.5 mg BID EFRAÍN Administration Cholecalciferol 2,000 units 05/30/20 09:00 06/02/20 10:05 Cholecalciferol 1,000 Units (25 Mcg) Tab PO 2,000 units DAILY EFRAÍN Administration Clopidogrel Bisulfate 75 mg 05/28/20 09:00 06/02/20 10:05 Clopidogrel Bisulfate 75 Mg Tab PO 75 mg DAILY EFRAÍN Administration Coenzyme Q10 100 mg 05/30/20 09:00 06/02/20 10:03 Ubidecarenone 50 Mg Cap PO 100 mg DAILY EFRAÍN Administration Diphenhydramine HCl 25 mg 05/28/20 01:05 05/30/20 01:49 Diphenhydramine 50 Mg/Ml Vial IVP 25 mg WILLCALL PRN Administration Allergies Enoxaparin Sodium 40 mg 05/28/20 09:00 06/02/20 10:03 Enoxaparin Sodium 40 Mg/0.4 Ml Syringe SC 40 mg 09 EFRAÍN Administration Milrinone Lactate/Dextrose 20 100 mls @ 8.813 mls/hr 05/31/20 19:15 06/02/20 16:54 mg/ Device IV 100 mls INF EFRAÍN Administration Protocol 0.375 MCG/KG/MIN Lamotrigine 100 mg 05/29/20 09:00 06/02/20 10:05 Lamotrigine 100 Mg Tab PO 100 mg DAILY EFRAÍN Administration Magnesium Oxide 400 mg 06/01/20 09:00 06/02/20 10:04 Magnesium Oxide 400 Mg Tab PO 400 mg BID EFRAÍN Administration Miscellaneous Medication 2 gm 05/30/20 07:30 06/02/20 16:35 Icosapent Ethyl 1 Gm Capsule PO 2 gm BID-AC EFRAÍN Administration Ondansetron HCl 4 mg 05/28/20 01:05 05/30/20 16:53 Ondansetron Odt 4 Mg Tab PO 4 mg Q6H PRN Administration Nausea/Vomiting Prednisone 40 mg 06/01/20 09:00 06/02/20 10:06 Prednisone 20 Mg Tab PO 06/03/20 09:01 Not Given DAILY EFRAÍN Sacubitril/Valsartan 1 tab 06/01/20 21:00 06/02/20 10:03 Sacubitril 24mg/Valsartan 26mg Tab PO 1 tab BID EFRAÍN Administration Spironolactone 25 mg 05/31/20 09:00 06/02/20 10:05 Spironolactone 25 Mg Tab PO 25 mg DAILY EFRAÍN Administration - Exam General Appearance: awake alert Eye: anicteric sclera ENT: moist mucosa Neck: supple Heart: RRR Respiratory: CTAB Gastrointestinal: soft Skin: no rashes Psychiatric: normal affect, normal behavior Hosp A/P - Plan -Assessment (1) Acute decompensated heart failure Code(s): I50.9 - HEART FAILURE, UNSPECIFIED Status: Acute (2) CAD (coronary artery disease) Code(s): I25.10 - ATHSCL HEART DISEASE OF [place] CORONARY ARTERY W/O ANG PCTRS Status: Chronic (3) HTN (hypertension) Code(s): I10 - ESSENTIAL (PRIMARY) HYPERTENSION Status: Chronic (4) HLD (hyperlipidemia) Code(s): E78.5 - HYPERLIPIDEMIA, UNSPECIFIED Status: Chronic (5) Abdominal pain Code(s): R10.9 - UNSPECIFIED ABDOMINAL PAIN Status: Resolved (6) Nausea & vomiting Code(s): R11.2 - NAUSEA WITH VOMITING, UNSPECIFIED Status: Resolved - Plan Plan: continue milrinone drip. Awaiting transfer to tertiary care center for further management. Patient is ambulating in hallways Patient is on Entresto for heart failure. Continue Wellbutrin. Patient is on Livalo and Vascepa for dyslipidemia. Hypertension is controlled and stable.
[2020-06-02] MEDS: Atorvastatin Calcium 10 MG TAB PO SCH (20:26)
[2020-06-03 01:08] VITALS: BP 124/83; TEMP 97.6
[2020-06-03] MEDS ORDERED: Loratadine 10 MG TAB PO SCH (09:00)
--- NOTE | 2020-06-03 12:34 | PDOC.DS.DS ---
Provider - Provider Date of Admission: 05/28/20 15:00 Date of Discharge: 06/02/20 Admitting Provider: [place] Consultations: Cardiology (Dr. Herron), Other (Electrophysiology: Dr. Velásquez; Heart Failure: Dr. Lopez) Primary Care Physician: Yg Pagan MD Course - Hospital Course Hospital Course: Discharge diagnosis: 1. Acute on chronic systolic congestive heart failure NYHA class III 2. COVID-19 test negative Hospital course: Patient is a pleasant 70-year-old gentleman who was admitted to the hospital on May 28, 2020 for congestive heart failure exacerbation. He also had abdominal pain, nausea and vomiting, which resolved. He was seen by cardiology service. He was treated with intravenous diuretics. Echocardiogram showed left ventricle ejection fraction of 10 to 15%. On May 31 he underwent upgrade to biventricular ICD. He was also seen by the heart failure specialist. He had PICC line placed and was started on milrinone drip. Heart failure service arranged for transfer to [facility] for higher level of care for transplant options. Patient was discharged to [facility] on June 02, 2020. Many thanks for allowing me to participate in your patient's care. Please feel free to contact me with any questions or concerns. Discharge destination: [facility] Total amount of time spent coordinating this discharge: 35 minutes Resuscitation Status: 05/28/20 01:05 Resuscitation Status Routine Resuscitation Status: FULL: Full Resuscitation - Labs Lab Results: 06/02/20 07:32 06/02/20 07:32 Abnormal Lab Results - Last 48 hrs 06/02/20 07:32: Anion Gap 9 L, Serum Total Protein 5.5 L, Albumin 3.3 L, Glob ulin 2.2 L 06/02/20 07:32: WBC 17.1 H, RBC 4.42 L, MCV 101.0 H, MCH 32.7 H, Neutrophils % 85.2 H, Lymphocytes % 6.1 L, Neutrophils # 14.6 H, Lymphocytes # 1.1 L, Monocytes # 1.4 H 06/02/20 07:32: B-Natriuretic Peptide 967.7 H Microbiology - Entire Visit 06/02/20 12:15 Urine clean catch Urine Culture - Preliminary NO GROWTH AT 24 HOURS - Physical Exam Vitals: Weight Weight 174 lb 9.6 oz Physical Exam: The patient was seen and examined on the day of discharge. Please refer to my daily progress note for further details regarding this [id number] encounter. Plan - Discharge Medications Home Medications: Medication Instructions Recorded Confirmed Type Aspirin [Ecotrin] 81 mg PO DAILY 05/28/20 05/28/20 History Carvedilol 12.5 mg PO BID 05/28/20 05/28/20 History Cholecalciferol (Vitamin D3) 2,000 unit PO DAILY 05/28/20 05/28/20 History [Vitamin D3] Clopidogrel Bisulfate [Clopidogrel] 75 mg PO HS 05/28/20 05/28/20 History Icosapent Ethyl [Vascepa] 2 cap PO BID-AC 05/28/20 05/28/20 History Lamotrigine [lamoTRIgine] 100 mg PO DAILY 05/28/20 05/28/20 History Pitavastatin Calcium [Livalo] 2 mg PO DAILY 05/28/20 05/28/20 History Sacubitril/Valsartan 49/51 1 tab PO BID 05/28/20 05/28/20 History [Entresto 49 mg-51 mg Tablet] Spironolactone [Aldactone] 25 mg PO DAILY 05/28/20 05/28/20 History Ubidecarenone [Co Q-10] 100 mg PO DAILY 05/28/20 05/28/20 History buPROPion HCl [Wellbutrin XL] 300 mg PO QAM 05/28/20 05/28/20 History Allergies: ZACHARIAH Inhibitors Allergy (Verified 05/28/20 04:50) PER ER NOTES furosemide [From Lasix] Allergy (Verified 05/28/20 04:50) PER ER NOTES latex Allergy (Verified 05/28/20 04:50) PER ER NOTES morphine Allergy (Verified 05/28/20 04:50) PER ER NOTES - Follow up Plan Referrals: Cardiac Rehab - [facility] [Outside] - 2-3 Weeks (We will f/u in a few weeks after work up in [place] for transplant/LVAD to possibly begin Outpatient Cardiac Rehabilitation. If not heard from in 3 weeks, please call us at [phone]) Yg Pagan MD [Primary Care Provider] - Disposition: HOME Quality - Care Measures CORE MEASURES:: HF - Stroke/TIA Did you prescribe antithrombotic therapy?: Yes Did you prescribe anticoagulant for A Fib/Flutter?: No Specify reason for no DC anticoagulant: Treatment not indicated Did you prescribe a statin medication?: No Specify reason for no DC statin medication: Treatment not indicated
== END 2020-06-02 23:35 | disposition home or self-care (01) | DRG 226 ==
LOC: ERS 21:31 → 2NO 23:49 → OBSVTOIN 05-28 15:00
PROVIDERS: ADMIT Internal Medicine; ATTEND Internal Medicine
PROC: 0JH608Z Insertion of Defibrillator Generator into Chest Subcutaneous Tissue and Fascia, Open Approach (ICD-10-PCS; principal; 2020-05-31)
PROC: 02HK3KZ Insertion of Defibrillator Lead into Right Ventricle, Percutaneous Approach (ICD-10-PCS; 2020-05-31)
PROC: 02H63KZ Insertion of Defibrillator Lead into Right Atrium, Percutaneous Approach (ICD-10-PCS; 2020-05-31)
PROC: 02HV33Z Insertion of Infusion Device into Superior Vena Cava, Percutaneous Approach (ICD-10-PCS; 2020-06-01)
PROC: B548ZZA Ultrasonography of Superior Vena Cava, Guidance (ICD-10-PCS; 2020-06-01)
DX: I25.5 Ischemic cardiomyopathy (principal); I50.43 Acute on chronic combined systolic (congestive) and diastolic (congestive) heart failure; I47.2 Ventricular tachycardia; I42.8 Other cardiomyopathies; Z20.828 Contact with and (suspected) exposure to other viral communicable diseases; I44.7 Left bundle-branch block, unspecified; E78.5 Hyperlipidemia, unspecified; I25.10 Atherosclerotic heart disease of native coronary artery without angina pectoris; E78.00 Pure hypercholesterolemia, unspecified; J45.909 Unspecified asthma, uncomplicated; F32.9 Major depressive disorder, single episode, unspecified; T50.1X5A Adverse effect of loop [high-ceiling] diuretics, initial encounter; L27.0 Generalized skin eruption due to drugs and medicaments taken internally; Z95.1 Presence of aortocoronary bypass graft; Z88.5 Allergy status to narcotic agent; Z88.8 Allergy status to other drugs, medicaments and biological substances; Z91.040 Latex allergy status; Z79.899 Other long term (current) drug therapy; Z79.82 Long term (current) use of aspirin; Z79.01 Long term (current) use of anticoagulants; Z79.02 Long term (current) use of antithrombotics/antiplatelets
CPT/HCPCS: 33224; 33249; 36005; 36415; 36569; 71045; 74177; 75820; 76942; 80048; 80053; 81001; 83735; 83880; 84443; 84484; 85025; 85610; 87086; 87635; 93005; 93010; 93306; 93798; 96372; 96374; 96376; C1751; C1882; C1898; C1900; G0378; J0690; J1200; J1580; J1650; J2260; J2405; J2704; J2920; J2930; J3010; J3490; J7512; Q0162; Q0163; Q9967; U0003

== ENCOUNTER 2020-06-28 23:32 | Emergency (ER) | payer MEDICARE, BC ==
--- NOTE | 2020-06-28 23:55 | RAD ---
PORTABLE CHEST: Date: 06/28/2020 PROVIDED CLINICAL HISTORY: Shortness of breath, dizziness, tachycardia. COMPARISON: 05/31/2020. FINDINGS: Cardiac silhouette appears enlarged, which may be at least partially on the basis of portable techniq ue. Median sternotomy changes, left subclavian cardiac pacing device, and right upper extremity PICC line are demonstrated. There is persistent blunting of the left costophrenic angle. There is no focal consolidation, pleural fluid, or pneumothorax apparent. IMPRESSION: No evidence for an acute cardiopulmonary process. POS: AUDI
[2020-06-29 00:15] LABS: #Eosinphils 0.4 thou/uL (0.0-0.7); #Lymphocytes 1.6 thou/uL (1.20-3.40); #Monocytes 0.7 thou/uL (0.11-0.59); #Neutrophils 2.9 thou/uL (1.40-6.50); %Basophils 0.3 % (0.0-1.0); %Eosinophils 6.7 % (0.0-10.0); %Lymphocytes 28.9 % (21.0-51.0); %Monocytes 11.7 % (0.0-10.0); %Neutrophils 52.3 % (42.0-75.0); Mean Corpuscular HGB CONC 33.5 g/dL (32.0-36.0); Mean Corpuscular Hemoglobin 33.3 pg (27.0-31.0); Mean Corpuscular Volume 99.5 fL (78.0-98.0); Mean Platelet Volume 8.7 fL (7.4-10.4); Platelet Count 164 thou/uL (130-400); RBC Distribution Width 12.8 % (11.5-14.5); Red Blood Cell (RBC) Count 4.21 mill/uL (4.70-6.10); White Blood Cell (WBC) Count 5.6 thou/uL (4.8-10.8)
[2020-06-29 00:32] LABS: ALT (SGPT) 21 U/L (8-55); AST (SGOT) 16 U/L (5-34); Albumin 3.9 g/dL (3.4-4.8); Alkaline Phosphatase 68 U/L (40-110); Anion Gap 13 mmol/L (10-20); BUN (Urea Nitrogen) 12 mg/dL (8.4-25.7); Bilirubin, Total 0.6 mg/dL (0.2-1.2); Calc. Creatinine Clearance 0 mL/min (70-130); Calcium 9.3 mg/dL (7.8-10.44); Carbon Dioxide 27 mmol/L (23-31); Chloride 101 mmol/L (98-107); Globulin 2.7 g/dL (2.4-3.5); Glucose 114 mg/dL (83-110); Potassium 4.3 mmol/L (3.5-5.1); Protein, Total 6.6 g/dL (5.8-8.1); Sodium 137 mmol/L (136-145)
[2020-06-29 02:22] LABS: Bilirubin Negative (Negative); Blood, Urine Negative (Negative); Clarity Clear (Clear); Glucose, Urine (Dipstick) Normal (Negative); Ketone, Urine Negative (Negative); Leukocyte Negative Leu/uL (Negative); Nitrite Negative (Negative); Protein, Urine (Dipstick) 10 mg/dL (Neg-Trace); Specific Gravity, Urine 1.013 (1.002-1.036); Urobilinogen Normal mg/dL (Less than 2)
[2020-06-29 03:08] LABS: SARS-CoV-2 NAA Rapid Test Not Detected (NotDetected)
== END 2020-06-29 03:30 | disposition home or self-care (01) ==
LOC: ERS 23:32
DX: I11.0 Hypertensive heart disease with heart failure (principal); I50.9 Heart failure, unspecified; E78.5 Hyperlipidemia, unspecified; I25.10 Atherosclerotic heart disease of native coronary artery without angina pectoris; Z79.899 Other long term (current) drug therapy
CPT/HCPCS: 71045; 80053; 81003; 83605; 83880; 84484; 85025; 93005; U0002; 36415